=== PATIENT | male | born 1970 | race Caucasian/White ===

== ENCOUNTER 2016-05-18 16:21 | Inpatient (IN) ==
[2016-05-18] MEDS ORDERED: IOPAMIDOL 100 ML BOTTLE IJ ONE (16:22)
--- NOTE | 2016-05-18 16:46 | Emergency Department Note ---
Abdominal Pain HPI - General Chief Complaint: Abdominal Pain Stated Complaint: Abd pain N/V/D Time Seen by Provider: 05/18/16 16:32 Source: patient Mode of arrival: ambulatory Limitations: no limitations - History of Present Illness HPI Narrative: This patient has had some nausea vomiting and diarrhea for the last week. He is developed fairly severe epigastric pain in the last 24 hours. It's sharp without radiation and may be made worse by food. No history of pain like this in the past. MD Complaint: abdominal pain Onset (ago): hour(s) Consistency: constant Location: epigastric Severity: moderate Quality: stabbing Radiation: none Migration to: no migration Improves with: nothing Worsens with: eating - Related Data Home Medications Medication Instructions Recorded Confirmed No Known Home Meds [No Known Home 05/18/16 05/18/16 Meds] Allergies Allergy/AdvReac Type Severity Reaction Status Date / Time No Known Drug Allergies Allergy Verified 05/24/15 18:37 Review of Systems Constitutional: Denies: fever Eyes: Denies: eye pain ENT ED: Denies: ear pain Cardiovascular: Denies: chest pain Respiratory: Denies: cough Gastrointestinal: Reports: abdominal pain, nausea, vomiting, diarrhea. Denies: constipation, hematemesis, melena, hematochezia Genitourinary: Denies: urgency Musculoskeletal: Denies: back pain Integumentary: Denies: rash Neurological: Denies: headache Abdominal Pain PMH - Past Medical History Medical history: Reports: hypertension Surgical history ED: Reports: orthopedic, other Physical Exam - General Limitations: no limitations General appearance: alert - Head Head exam: atraumatic - Eye Eye exam: Present: normal appearance - ENT ENT exam: normal exam - Neck Neck exam: Present: normal inspection - Chest Chest inspection: Present: normal inspection - Respiratory Respiratory exam: Present: normal lung sounds bilaterally - Cardiovascular Cardiovascular exam: Present: regular rate, normal rhythm, normal heart sounds - Abdominal Exam Abdominal exam: Present: soft, tenderness, guarding. Absent: distention, rebound, rigidity Abdominal tenderness: Present: epigastrium, moderate - Rectal Exam Rectal exam: Present: deferred - Neurological Exam Neurological exam: Present: alert - Psychiatric Psychiatric exam: Present: normal affect - Skin Skin exam: Present: warm, dry Course Vital Signs Temperature 98.3 F 05/18/16 16:22 Pulse Rate 134 H 05/18/16 16:22 Respiratory Rate 22 05/18/16 16:22 Blood Pressure 168/127 05/18/16 16:22 Pulse Oximetry (%) 99 05/18/16 16:22 Temperature 98.3 F 05/18/16 16:22 Pulse Rate 117 H 05/18/16 18:42 Respiratory Rate 22 05/18/16 16:22 Blood Pressure 183/115 05/18/16 18:42 Pulse Oximetry (%) 98 05/18/16 18:42 Abdominal Pain - MDM Narrative Medical decision making narrative: This patient has pancreatitis without obvious cause. His gallbladder ultrasound was negative. - Lab Data Lab results reviewed: Yes I reviewed the patient's lab results. (lipase was over 1100) Result diagrams: 05/18/16 16:58 05/18/16 16:58 Lab Results 05/18/16 05/18/16 05/18/16 Range/Units 16:46 16:58 16:58 WBC 18.2 H (4.5-11.0) K/mcL RBC 4.42 L (4.50-5.90) M/mcL Hgb 15.5 (13.5-16.5) g/dL Hct 46.0 (41.0-55.0) % MCV 103.9 H (80.0-100.0) fL MCH 35.1 H (26.0-34.0) pg MCHC 33.7 (31.0-36.0) g/dL RDW 14.0 (11.5-14.5) % Plt Count 254 (140-440) K/mcL MPV 8.6 (7.4-10.4) fL Gran % 88.9 H (38.0-78.0) % Lymph % (Auto) 4.6 L (15.5-49.0) % [place] % (Auto) 6.0 (1.0-9.0) % Eos % (Auto) 0.5 (0.0-7.0) % Baso % (Auto) 0 (0.0-2.0) % Gran # 16.2 H (1.8-8.0) K/mcL Lymph # 0.8 L (1.5-4.8) K/mcL [place] # 1.1 H (0.1-0.9) K/mcL Eos # 0.1 (0.0-0.7) K/mcL Baso # 0 (0.0-0.3) K/mcL Sodium 133 (133-145) mmol/L Potassium 3.4 (3.3-5.1) mmol/L Chloride 93 L (96-108) mmol/L Carbon Dioxide 23 (22-30) mmol/L Anion Gap 17.0 H (8-16) BUN 16 (6-20) mg/dl Creatinine 1.0 (0.7-1.2) mg/dl GFR Calculation 90 Glucose 132 H (70-105) mg/dL Calcium 8.6 (8.6-10.4) mg/dl Total Bilirubin 1.5 H (0.0-1.0) mg/dL AST 23 (0-37) U/l ALT 15 (0-40) U/l Alkaline Phosphatase 88 (39-117) U/L Total Protein 7.1 (5.9-8.4) gm/dL Albumin 4.1 (3.2-5.2) gm/dL Globulin 3.0 (2.2-3.7) gm/dL Albumin/Globulin Ratio 1.4 (1.0-2.3) Lipase 1186 H (7-60) U/L Urine Color Ana Luisa Urine Appearance Cloudy Urine pH 5.0 (5.0-9.0) Ur Specific [place] 1.033 (1.000-1.035) Urine Protein 100 A (NEG) mg/dL Urine Glucose (UA) 50 A (NEG) mg/dL Urine Ketones 5/tr A (NEG) mg/dL Urine Occult Blood Neg (<0.03) mg/dL Urine Nitrate Neg (NEG) Urine Bilirubin Neg (NEG) mg/dL Urine Ictotest Neg (NEG) Urine Urobilinogen 2.0 A (NEG) mg/dL Ur Leukocyte Esterase 25 A (NEG) /uL Urine RBC 8 H (0-1) /hpf Urine WBC 30 H (0-4) /hpf Ur Squamous Epith Cells 0 (0-4) /hpf Ur Transition Epith Cell 1 (0-2) /hpf Amorphous Crystals Few A (0) /hpf Urine Bacteria 0 (0) /hpf Hyaline Casts 74 H (0-2) /lpf Urine Mucus Many A (0) /hpf Ur Culture Indicated? Yes - Radiology Data Radiology results reviewed: Yes I reviewed the patient's radiology results. ( gallbladder sonogram negative) Disposition Clinical Impression: Pancreatitis, Urinary tract infection Disposition: Xfer As Inpt ([facility]) Condition: Good Referrals: Chico Jett MD [Primary Care Provider] - Time of Disposition: 19:24
[2016-05-18] MEDS ORDERED: ONDANSETRON 4 MG/2 ML VIAL IV ONE (16:49)
[2016-05-18] MEDS ORDERED: 0.9 % SODIUM CHLORIDE 1,000 ML IV ONE ×2 (16:49→18:04)
[2016-05-18 17:26] LABS: Appearance,Urine CLOUDY; Bacteria,Urine 0 /hpf (0); Bilirubin,Urine NEG (NEG); Color,Urine AMBER; Glucose,Urine (UA) 50 mg/dL (NEG); Ictotest,Urine NEG (NEG); Leukocyte Esterase,Urine 25 /uL (NEG); Mucus,Urine MANY /hpf (0); Nitrate,Urine NEG (NEG); Protein,Urine 100 mg/dL (NEG); Specific Gravity,Urine 1.033 (1.000-1.035); Urine Amorphous Crystals FEW /hpf (0); Urine Blood NEG mg/dL (<0.03); Urine Hyaline Cast 74 /lpf (0-2); Urine RBC 8 /hpf (0-1); Urine Squamous Epithelial Cell 0 /hpf (0-4); Urine Transitional Epi Cells 1 /hpf (0-2); Urine WBC 30 /hpf (0-4)
[2016-05-18] MEDS: HYDROmorphone 2 MG/ML SYRINGE IV PRN ×4 (17:30→20:35)
[2016-05-18 17:39] LABS: Basophils # (Auto) 0 K/mcL (0.0-0.3); Basophils % (Auto) 0 % (0.0-2.0); Eosinophils # (Auto) 0.1 K/mcL (0.0-0.7); Eosinophils % (Auto) 0.5 % (0.0-7.0); Granulocytes % (Auto) 88.9 % (38.0-78.0); Lymphocytes # (Auto) 0.8 K/mcL (1.5-4.8); Lymphocytes % (Auto) 4.6 % (15.5-49.0); Mean Cell Volume 103.9 fL (80.0-100.0); Mean Corpuscular HGB Conc 33.7 g/dL (31.0-36.0); Mean Corpuscular Hemoglobin 35.1 pg (26.0-34.0); Monocytes # (Auto) 1.1 K/mcL (0.1-0.9); Platelet Count 254 K/mcL (140-440); RBC 4.42 M/mcL (4.50-5.90)
[2016-05-18 17:59] LABS: ALT/SGPT 15 U/l (0-40); Albumin 4.1 gm/dL (3.2-5.2); Albumin/Globulin Ratio 1.4 (1.0-2.3); Alkaline Phosphatase 88 U/L (39-117); Blood Urea Nitrogen 16 mg/dl (6-20)
[2016-05-18 18:07] LABS: Lipase 1186 U/L (7-60)
[2016-05-18] MEDS ORDERED: LEVOFLOXACIN 500 MG/100 ML BAG IV ONE ×2 (19:22→22:05)
[2016-05-18] MEDS ORDERED: MAGNESIUM SULFATE 2 GM/50 ML BAG IV PRN (21:46)
[2016-05-18] MEDS ORDERED: HYDROcodone/APAP 5/325MG TABLET PO PRN (21:46)
[2016-05-18] MEDS ORDERED: ACETAMINOPHEN 325 MG TABLET PO PRN (21:46)
[2016-05-18] MEDS ORDERED: ACETAMINOPHEN 1,000 MG/100 ML BOTTLE IV PRN (21:46)
[2016-05-18] MEDS ORDERED: ONDANSETRON 4 MG/2 ML VIAL IV PRN (21:46)
[2016-05-18] MEDS ORDERED: cefTRIAXone 2 GM in DEXTROSE 5% IN WATER 50 ML IV SCH (21:46)
[2016-05-18] MEDS ORDERED: POTASSIUM CHLORIDE 20 MEQ PACKET PO PRN (21:46)
[2016-05-18] MEDS ORDERED: HYDROmorphone 2 MG/ML SYRINGE ONE ×2 (21:47→22:29)
[2016-05-18] MEDS: 0.9 % SODIUM CHLORIDE 1,000 ML IV SCH (21:49)
[2016-05-18] MEDS ORDERED: cefTRIAXone 1 GM VIAL ONE (22:05)
[2016-05-18] MEDS: NOREPINEPHRINE BITARTRATE 16 MG in 0.9 % SODIUM CHLORIDE 234 ML IV SCH (22:16)
[2016-05-18] MEDS: SENNOSIDES/DOCUSATE SODIUM 1 TAB TABLET PO SCH (22:16)
[2016-05-18] MEDS: DOCUSATE SODIUM 100 MG CAPSULE PO SCH (22:17)
[2016-05-18] MEDS ORDERED: LEVOFLOXACIN 250 MG/50 ML BAG IV ONE (22:30)
[2016-05-18] MEDS: LACTATED RINGERS 1,000 ML IV SCH (22:50)
[2016-05-18] MEDS ORDERED: NICOTINE 21 MG PATCH ONE (23:24)
[2016-05-18] MEDS: NICOTINE 21 MG PATCH TOPICAL SCH (23:30)
[2016-05-18] MEDS: LEVOFLOXACIN 750 MG/150 ML BAG IV SCH (23:43)
[2016-05-18] MEDS: HEPARIN 5,000 UNIT/ML VIAL SQ SCH (23:52)
[2016-05-18] MEDS: 0.9 % SODIUM CHLORIDE 10 ML SYRINGE IV SCH (23:55)
[2016-05-19] MEDS ORDERED: hydrALAZINE 20 MG/ML VIAL IV PRN (00:08)
[2016-05-19] MEDS ORDERED: hydrALAZINE 20 MG/ML VIAL ONE (00:11)
[2016-05-19] MEDS ORDERED: HYDROmorphone 2 MG/ML SYRINGE ONE ×2 (00:23→02:12)
[2016-05-19] MEDS ORDERED: LIDOCAINE JEL 2% 1 TUBE 30GM TOPICAL ONE (01:04)
[2016-05-19] MEDS ORDERED: chlordiazePOXIDE 25 MG CAPSULE PO ONE (02:56)
[2016-05-19] MEDS ORDERED: chlordiazePOXIDE 25 MG CAPSULE PO PRN (03:05)
[2016-05-19] MEDS: 0.9 % SODIUM CHLORIDE 1,000 ML IV SCH ×2 (03:07→21:09)
[2016-05-19 06:16] LABS: Mean Cell Volume 104.9 fL (80.0-100.0); Mean Corpuscular HGB Conc 33.8 g/dL (31.0-36.0); Mean Corpuscular Hemoglobin 35.5 pg (26.0-34.0); Platelet Count 190 K/mcL (140-440); RBC 3.42 M/mcL (4.50-5.90); Red Cell Distribution Width 14.2 % (11.5-14.5)
[2016-05-19 06:42] LABS: ALT/SGPT 10 U/l (0-40); Albumin 3.1 gm/dL (3.2-5.2); Albumin/Globulin Ratio 1.6 (1.0-2.3); Alkaline Phosphatase 66 U/L (39-117); Bilirubin,Direct 0.3 mg/dL (0.0-0.3); Blood Urea Nitrogen 9 mg/dl (6-20); Gamma Glutamyl Transpeptidase 132 U/L (8-61); Magnesium 1.2 mg/dL (1.6-2.5); Phosphorous 2.2 mg/dL (2.7-4.5)
--- NOTE | 2016-05-19 06:56 | Ultrasound Report ---
CLINICAL INFORMATION: Right upper quadrant pain nausea and vomiting COMPARISON: None. FINDINGS: The gallbladder is unremarkable. No wall thickening or stones. Common bile is normal caliber: 4.5 mm. The liver is mildly hyperechoic compatible fatty change. There is no focal hepatic lesion. The liver is normal size. Pancreas not visualized due to bowel gas. IMPRESSION: Gallbladder and bile ducts are unremarkable. Hyperechoic liver compatible fatty change or other diffuse parenchymal process Pancreas not visualized due to bowel gas Interpreted and Authenticated by: Omari Green 05/19/16
[2016-05-19 07:02] LABS: Band Neutrophils % 2 % (0-10); Eosinophils % (Manual) 1 % (0-7); Lymphocytes % 2 % (15-49); Macrocytosis 2+ (NONE SEEN); Monocytes % (Manual) 6 % (1-9); Platelet Estimate NORMAL (NORMAL); RBC Morphology ABNORM (NORMAL); Segmented Neutrophils % 89 % (38-78)
[2016-05-19] MEDS: 0.9 % SODIUM CHLORIDE 10 ML SYRINGE IV SCH ×4 (07:12→21:09)
[2016-05-19] MEDS: PANTOPRAZOLE 40 MG VIAL IV SCH (07:37)
[2016-05-19] MEDS: LACTATED RINGERS 1,000 ML IV SCH ×2 (07:59→19:25)
--- NOTE | 2016-05-19 08:00 | Cat Scan Report ---
CLINICAL INFORMATION: Right upper quadrant pain COMPARISON: None. TECHNIQUE: Following enteric contrast, 80 cc of Isovue-300 were injected intravenously, and 60 seconds later, 2.5 mm helical slices were obtained from the mid heart through the subtrochanteric regions. Following reconstruction, 2.5 mm sagittal, coronal and axial reformatted images were processed and reviewed at bone, lung and soft tissue windows. Five minutes later, 5 mm helical slices were obtained from the mid heart through the kidneys and viewed at soft tissue windows. FINDINGS: Lung bases show only minor atelectasis. No effusion. The heart is grossly normal in size configuration Images should the abdomen show minimal fatty change within the liver, but no focal hepatic lesions. The gallbladder and bile ducts are normal - CBD is 5 mm. A 9 mm simple cyst is noted inferior pole the left kidney and a 6 mm simple cyst is present in the superior pole of the right kidney. Remainder of both kidneys, adrenal glands, spleen and aorta, including aortic branches, are normal in size configuration and attenuation without focal lesion. The pancreatic head, neck and proximal body are mildly enlarged and there is inflammation in the peripancreatic fat planes with a small amount of fluid extending along the right anterior pararenal space and paracolic gutter. Small amounts also the deep true pelvis. Findings are compatible with simple pancreatitis. No evidence of pseudocyst, necrosis, pancreatic or common bile duct dilatation etc. etc. Pancreatic duct is normal caliber - less than 2 mm. The stomach, small and large bowel are grossly normal. No free air, or adenopathy. Images through the pelvis show urinary bladder, prostate and seminal vesicles to be normal. Bone windows show no osseous abnormalities. IMPRESSION: 1. Simple pancreatitis involving the head, neck and proximal body. 2. Small simple cysts - both kidneys Interpreted and Authenticated by: Omari Green 05/19/16
[2016-05-19] MEDS ORDERED: [UNRECOGNIZED DRUG - REMARK] IV SCH (09:00)
[2016-05-19] MEDS ORDERED: POTASSIUM CHLORIDE 80 MEQ in DEXTROSE 5% IN WATER 1,000 ML IV ONE (09:00)
[2016-05-19] MEDS: HEPARIN 5,000 UNIT/ML VIAL SQ SCH ×2 (09:22→21:08)
[2016-05-19] MEDS: DOCUSATE SODIUM 100 MG CAPSULE PO SCH ×2 (09:22→20:33)
[2016-05-19] MEDS: NICOTINE 21 MG PATCH TOPICAL SCH (09:23)
[2016-05-19] MEDS: MULTIVIT,THER IRON,CA,FA & MIN 1 TABLET PO SCH (09:23)
[2016-05-19] MEDS: HYDROmorphone 2 MG/ML SYRINGE IV PRN ×2 (09:30→14:52)
[2016-05-19] MEDS ORDERED: [UNRECOGNIZED DRUG - REMARK] IV SCH (10:00)
--- NOTE | 2016-05-19 10:34 | Internal Med Progress Note ---
Medical - PN: Subj Patient information: Note initiated : 05/19/16 at 10:29 am Service Date, if different from initiated Date: [] Patient: Yinka Medina 46 y/o M admitted on 05/18/16 for Abd pain N/V/D. Chief Complaint: [] Interval history: 05/18- 46-year-old known alcoholic admitted with epigastric abdominal pain 10 out of 10. initial workup significant for cute pancreatitis. no evidence of choledocholithiasis ongallbladder ultrasound. CT abdomen pending initial [place] 's and Meigs score low. However out of proportion pain. Admitted to telemetry in light of system inquiry response syndrome with white count 18,000 tachycardia tachypnea. Associated complicated UTI with pyuria. Await CT to rule out pyelonephritis. On antibiotic coverage, crystalloids, NPO, analgesics and IV antiemetics. patient explained clinical significance of pancreatitis and endoscopic mortality if evidence of necrosis/pseudocyst/infection. lipase over 1000. nitial CRP 4.2. Continue daily trending 05/19- patient had a rough night with severe pain not responding to high dose of Dilaudid and subsequently started on morphine with adequate pain relief down to 4 out of 10. Associated nausea. Systemic infected response syndrome improving with resolving tachycardia. Leukocytosis of 13,000. at bedside. Aggressive alcohol cessation counseling performed. Patient starting to withdraw. On Librium to counter alcohol withdrawal and psychomotor agitation - Constitutional Vitals: Vital Signs Temp Pulse Resp BP Pulse Ox 100.4 F H 102 H 20 154/105 94 05/19/16 07:20 05/18/16 23:00 05/19/16 08:00 05/19/16 07:20 05/19/16 08:00 Period Temp Pulse Resp BP Sys/Armenta Pulse Ox Last 24 Hr 98.3 F-100.4 F 100-115 20-22 154-195/105-123 94-97 Intake and Output 05/18/16 05/19/16 05/19/16 21:59 05:59 13:59 Intake Total 2100 / 2100 1127 / 1127 Output Total 550 / 550 Balance 1550 / 1550 1127 / 1127 Weight 240 lb Patient Weight 05/20/16 05:59 Weight 240 lb Intake & Output: Intake & Output 05/18/16 05/19/16 05/19/16 21:59 05:59 13:59 Intake Total 2099 / 2099 1127 / 1127 Output Total 550 / 550 Balance 1550 / 1550 1127 / 1127 Weight 240 lb Intake: IV 2049 1127 / 1127 Sodium Chloride 0.9% 1, 2000 / 1999 000 ml @ Wide Open IV BOLUS [facility] Rx#:[id number] Lactated Ringers 1,000 ml 1127 / 1127 @ 100 mls/hr IV .Q10H [facility] Rx#:[id number] LEVAQUIN 500 mg In 100 ml 50 / 50 As IV .STK-MED ONE Rx#: [id number] IV - Manual Only 50 / 50 Output: Urine Catheter Amount 550 / 550 General appearance: cooperative, moderate distress (abdominal pain and anxiety) Exam: resting Nonlabored breathing Tachycardia improved on telemetry Tenderand minimally distended abdomen no lymphedema Medical - PN: Obj Da - Labs CBC & Chem 7: 05/19/16 04:16 05/19/16 04:16 Labs: Abnormal Lab Results 05/19/16 05/19/16 04:16 04:16 WBC 13.4 H RBC 3.42 L Hgb 12.1 L Hct 35.8 L MCV 104.9 H MCH 35.5 H Seg Neutrophils % 89 H Lymphocytes % 2 L RBC Morphology Abnorm A Macrocytosis 2+ A Sodium 131 L Potassium 3.1 L Calcium 7.0 L Phosphorus 2.2 L Magnesium 1.2 L GGT 132 H Total Protein 5.0 L Albumin 3.1 L Globulin 1.9 L Meds: Medications Acetaminophen (Tylenol) 650 mg PO Q4-6HP PRN PRN Reason: PAIN/FEVER > 101 Acetaminophen/Hydrocodone Bitart ([place] 5/325mg) 0 tab PO Q4HP PRN PRN Reason: Pain Chlordiazepoxide HCl (Librium) 25 mg PO Q4HP PRN PRN Reason: Alcohol Withdrawal Docusate Sodium (Colace) 100 mg PO BID [facility] Last Admin: 05/19/16 09:22 Dose: Not Given Heparin Sodium (Porcine) (Heparin) 5,000 unit SQ Q12 [facility] Last Admin: 05/19/16 09:22 Dose: 5,000 unit Hydralazine HCl (Apresoline) 10 mg IV Q4-6HP PRN PRN Reason: Hypertension Hydromorphone HCl (Dilaudid) 2 mg IV Q2HP PRN PRN Reason: Pain Last Admin: 05/19/16 09:30 Dose: 2 gm Lactated Ringer's (Lactated Ringers) 1,000 mls @ 100 mls/hr IV .Q10H [facility] Stop: 05/20/16 03:45 Last Infusion: 05/19/16 10:06 Dose: 0 mls/hr Levofloxacin (Levaquin) 750 mg in 150 mls @ 100 mls/hr IV DAILY [facility] Last Admin: 05/18/16 23:43 Dose: Not Given Magnesium Sulfate (Magnesium Sulfate) 2 gm in 50 mls @ 50 mls/hr IV UD PRN PRN Reason: MG = or < 1.7 Norepinephrine Bitartrate 16 (mg/ Sodium Chloride) 250 mls @ 9.37 mls/hr IV Q24H GREGORY; 10 MCG/MIN PRN Reason: Protocol Last Admin: 05/18/16 22:16 Dose: Not Given Sodium Chloride (Sodium Chloride 0.9%) 1,000 mls @ 0 mls/hr IV BOLUS GREGORY PRN Reason: Wide Open Last Infusion: 05/19/16 04:10 Dose: Infused Acetaminophen (Ofirmev) 1,000 mg in 100 mls @ 200 mls/hr IV Q6HP PRN PRN Reason: PAIN/FEVER > 101 Ceftriaxone Sodium 2 gm/ (Dextrose) 50 mls @ 100 mls/hr IV DAILY [facility] Magnesium Sulfate 16.24 meq/Thiamine HCl 100 mg/Multivitamins/Minerals 10 ml/ Potassium Chloride 80 meq/Sodium Chloride 1,055 mls @ 131.875 mls/hr IV .Q8H [facility] Stop: 05/19/16 17:59 Last Admin: 05/19/16 10:03 Dose: 131.875 mls/hr Iron Carb/Multivit/Community Educator/Folic Acid (Multivitamin W/Minerals) 1 tab PO DAILY [facility] Last Admin: 05/19/16 09:23 Dose: Not Given Morphine Sulfate (Morphine) 4 mg IV Q4-6HP PRN PRN Reason: Pain Nicotine (Nicoderm) 21 mg TOPICAL DAILY@1000 GREGORY Last Admin: 05/19/16 09:23 Dose: 21 mg Ondansetron HCl (Zofran) 4 mg IV Q4-6HP PRN PRN Reason: Nausea And Vomiting Pantoprazole Sodium (Protonix) 40 mg IV ACB [facility] Last Admin: 05/19/16 07:37 Dose: 40 mg Potassium Chloride (Klor-Con) 40 meq PO DAILYP PRN PRN Reason: K+ < 3.5 Senna/Docusate Sodium (Senna Plus Tablet) 1 tab PO HS [facility] Last Admin: 05/18/16 22:16 Dose: Not Given Sodium Chloride (Saline Flush) 10 ml IV Q8 [facility] Last Admin: 05/19/16 07:12 Dose: 10 ml Medical - PN: A/P - Time Spent With Patient Total time spent is greater than 50% in coordination of care (as documented) at patient's floor/unit and/or counseling patient: Greater than 35 minutes (critical care time) (1) Acute alcoholic pancreatitis Status: Acute Assessment and plan: * Acute alcoholic pancreatitis- managed per guidelines. Low [place] and Meigs score on admit. However out of proportion pain requiring excessive IV opioids. Continue close monitoring. Keep nothing by mouth. crystalloids * Alcohol withdrawal with psychomotor agitation. on oral benzodiazepines. Continue banana bag. * Hypokalemia on IV replacement * Abdominal pain on IV opioids * History of hypertension- IV hydralazine as needed for systolics over 160 * prophylaxis on heparin Plan * Conservative management * Alcohol withdrawal protocol * Continue ICU care and watch for DTs * aggressive Electrolyte Replacement Current Visit: Yes Medical - PN: Qual - VTE Deep Vein Thrombosis/Pulmonary Embolism Present on Admission: No
[2016-05-19] MEDS ORDERED: 0.9 % SODIUM CHLORIDE 1,000 ML IV SCH (10:45)
--- NOTE | 2016-05-19 13:09 | History and Physical Report ---
DATE OF ADMISSION: 05/18/2016. REASON FOR ADMISSION: Severe abdominal pain, nausea, and vomiting. 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 He has been working with the symptoms and trying [id number] analgesics without help. The pain has progressed to the point the patient can barely move and function. The pain gets exacerbated with food and movement and describes it 8/10 to 10/10, upper abdomen radiating to the back, associated with severe nausea. The patient denies fevers, shaking chills, headache, photophobia. Pain also exacerbates with alcohol and hence since last one week, he has not had a drink. The patient has been trying to cut down on his alcohol use, which in the last 1 month from almost 8-10 beers a day to 5 beers a day. Other than that, he denies diarrhea, bloody stool, bloody urine, dysuria, headache, photophobia. The ER initial workup was significant for lipase of over 1100 along with pyuria and white count 18,000. In light of systemic inflammatory response syndrome with tachycardia, tachypnea, and high white count, hospitalist service was consulted. Gallbladder ultrasound was unremarkable for choledocholithiasis. At the time of examination, the patient is extremely anxious, diaphoresing, in significant pain. He was able to provide most of the history and was able to participate in review of systems. REVIEW OF SYSTEMS: Ten-point review of system was performed and is negative except the ones discussed above. PAST MEDICAL HISTORY: Significant for hypertension. CURRENT MEDICATIONS: Beclomethasone daily. Hydrocodone/acetaminophen 5/325 every 4 hours as needed. Losartan 50 mg daily. ALLERGIES: NONE. SOCIAL HISTORY: The patient is to his , lives in [place]. 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 He sees primary care physician, Chico Jett MD. He drinks 8 to 10 beers a day and has been trying to cut down recently. No history of substance abuse. Everyday smoker. 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 FAMILY HISTORY: Significant for diabetes in mother, but no history of pancreatic cancer or stroke. Father had peripheral vascular disease and of complication of gangrene. PHYSICAL EXAMINATION: GENERAL: The patient is alert and in significant distress. Height 6 feet 4 inches, BMI 29. VITAL SIGNS: Blood pressure 188/118, respiratory rate 22, temperature 98.3, pulse between 117 and 134, regular, sats 99 percent on room air. HEENT: Pupils symmetric. Oral cavity is dry. No ear or nose discharge. Head is normocephalic and atraumatic. NECK: No lymphadenopathy. CHEST: S1, S2, tachycardia. No murmur appreciated. Diminished breath sounds at bases, but symmetrical breath sounds bilaterally. ABDOMEN: Extremely tender around the epigastric area but no rebound, no Vidal sign, ileus with distention. No fluid, no shifting dullness. LOWER EXTREMITIES: No cyanosis or clubbing. No joint swelling. SKIN: No suspicious lesions. PSYCHIATRIC: Anxious, diaphoretic but cooperative. No hallucination. NEUROLOGIC: Moving all 4 extremities. Normal high function. LABS AND IMAGING: Abdominal ultrasound: Gallbladder and bile ducts are unremarkable. CT abdomen and pelvis: Simple pancreatitis involving the head, small simple cysts both kidneys. White count 18.2, hemoglobin 15.5, platelets 254. ESR 8. Lactic acid 0.8. Sodium 130, potassium 3.4, creatinine 1, BUN 16, bilirubin 1.5. Lipase 1186. Procalcitonin 0.13. UA: 30 WBCs. ASSESSMENT AND PLAN: A 46-year-old with acute alcoholic pancreatitis. 1. Acute alcoholic pancreatitis. Low [place]'s and [place] score on admit, however, intractable pain. Continue management per guidelines with nothing by mouth, antiemetics, analgesics, along with crystalloids, target at least 3 to 4 liters of crystalloid resuscitation. 2. Abdominal pain. Will be continued on IV opioids and transition to a EMERGENCY ROOM PHYSICIAN ASSISTANT if inadequate control. 3. Complicated urinary tract infection. Continue antibiotic coverage. 4. Severe sepsis with leukocytosis, tachypnea, tachycardia. Continue antibiotic coverage and __ based on culture results. 5. History of hypertension. We will restart antihypertensives once the patient is hemodynamically stable. 6. History of reactive airway disease. Continue home dose bronchodilators. 7. Deep venous thrombosis prophylaxis. He will be on heparin. PLAN FOR TODAY: 1. Admit as inpatient. 2. Conservative management for pancreatitis keeping nothing by mouth, crystalloids, antiemetics, and analgesics. 3. Antibiotic coverage. 4. Serial CRP trending. 5. The patient will be kept at least 72 hours and will qualify for inpatient hospitalization. [email or web address] Job ID: [id number] Doc ID: [id number] Vinay Jett MD [facility] CENTERAnjel
[2016-05-19] MEDS: cefTRIAXone 2 GM in DEXTROSE 5% IN WATER 50 ML IV SCH (13:24)
[2016-05-19] MEDS: LEVOFLOXACIN 750 MG/150 ML BAG IV SCH (13:56)
[2016-05-19] MEDS: SENNOSIDES/DOCUSATE SODIUM 1 TAB TABLET PO SCH (20:33)
[2016-05-19] MEDS: NOREPINEPHRINE BITARTRATE 16 MG in 0.9 % SODIUM CHLORIDE 234 ML IV SCH (20:34)
[2016-05-20] MEDS: LACTATED RINGERS 1,000 ML IV SCH (02:56)
[2016-05-20 05:34] LABS: Mean Cell Volume 105.2 fL (80.0-100.0); Mean Corpuscular HGB Conc 33.7 g/dL (31.0-36.0); Mean Corpuscular Hemoglobin 35.5 pg (26.0-34.0); Platelet Count 173 K/mcL (140-440); RBC 3.38 M/mcL (4.50-5.90); Red Cell Distribution Width 14.1 % (11.5-14.5)
[2016-05-20] MEDS: 0.9 % SODIUM CHLORIDE 10 ML SYRINGE IV SCH ×3 (05:52→21:20)
[2016-05-20 06:03] LABS: ALT/SGPT 9 U/l (0-40); Albumin 3.1 gm/dL (3.2-5.2); Albumin/Globulin Ratio 1.6 (1.0-2.3); Alkaline Phosphatase 69 U/L (39-117); Bilirubin,Direct 0.2 mg/dL (0.0-0.3); Blood Urea Nitrogen 4 mg/dl (6-20); C-Reactive Protein 14.7 mg/dl (0.0-0.8); Gamma Glutamyl Transpeptidase 131 U/L (8-61); Magnesium 1.9 mg/dL (1.6-2.5); Uric Acid 2.8 mg/dL (2.5-8.0)
[2016-05-20 06:44] LABS: Basophils % (Manual) 1 % (0-2); Eosinophils % (Manual) 4 % (0-7); Lymphocytes % 8 % (15-49); Macrocytosis 2+ (NONE SEEN); Monocytes % (Manual) 5 % (1-9); Platelet Estimate NORMAL (NORMAL); RBC Morphology ABNORM (NORMAL); Segmented Neutrophils % 80 % (38-78)
[2016-05-20] MEDS: PANTOPRAZOLE 40 MG VIAL IV SCH (07:55)
[2016-05-20] MEDS ORDERED: [UNRECOGNIZED DRUG - REMARK] IV SCH (09:00)
[2016-05-20] MEDS ORDERED: FLU VACC QS2016-17 36MOS UP/PF 60 MCG/0.5 ML SYRINGE IM ONE (09:00)
--- NOTE | 2016-05-20 09:45 | Internal Med Progress Note ---
Medical - PN: Subj Patient information: Note initiated : 05/20/16 at 9:43 am Service Date, if different from initiated Date: [] Patient: Yinka Medina 46 y/o M admitted on 05/18/16 for Abd pain N/V/D. Chief Complaint: [] Interval history: 05/18- 46-year-old known alcoholic admitted with epigastric abdominal pain 10 out of 10. initial workup significant for cute pancreatitis. no evidence of choledocholithiasis ongallbladder ultrasound. CT abdomen pending initial [place] 's and [place] score low. However out of proportion pain. Admitted to telemetry in light of system inquiry response syndrome with white count 18,000 tachycardia tachypnea. Associated complicated UTI with pyuria. Await CT to rule out pyelonephritis. On antibiotic coverage, crystalloids, NPO, analgesics and IV antiemetics. patient explained clinical significance of pancreatitis and endoscopic mortality if evidence of necrosis/pseudocyst/infection. lipase over 1000. nitial CRP 4.2. Continue daily trending 05/19- patient had a rough night with severe pain not responding to high dose of Dilaudid and subsequently started on morphine with adequate pain relief down to 4 out of 10. Associated nausea. Systemic infected response syndrome improving with resolving tachycardia. Leukocytosis of 13,000. at bedside. Aggressive alcohol cessation counseling performed. Patient starting to withdraw. On Librium to counter alcohol withdrawal and psychomotor agitation 05/20-Patient clinically improved. CRP uptrending at 14.7. Passing flatus. Much improved pain requiring opioids once in 4 hours. Slept well. Discussed treatment plan. at bedside. Start patient on clear liquids/jellos. no overnight chest pain shortness of breath. MAXIMUM TEMPERATURE 100.4. urine cultures negative so far. white count down from 18.2-> 12.2. magnesium 1.9. Phosphorus 2. transfer to medical floor. Stable hemodynamics. DC antibiotics in 24 hours. - Constitutional Vitals: Vital Signs Temp Pulse Resp BP Pulse Ox 99.6 F 89 16 169/99 99 05/20/16 04:00 05/20/16 04:00 05/20/16 04:00 05/20/16 04:00 05/20/16 04:00 Period Temp Pulse Resp BP Sys/Armenta Pulse Ox Last 24 Hr 98.8 F-100.4 F 88-89 16-20 149-169/95-100 93-99 Intake and Output 05/19/16 05/20/16 05/20/16 21:59 05:59 13:59 Intake Total 2205 / 2205 788 / 788 Output Total 1250 / 1250 1400 / 1400 Balance 955 / 955 -612 / -612 Weight 239 lb Intake & Output: Intake & Output 05/19/16 05/20/16 05/20/16 21:59 05:59 13:59 Intake Total 2205 / 2205 788 / 788 Output Total 1250 / 1250 1400 / 1400 Balance 955 / 955 -612 / -612 Weight 239 lb Intake: IV 2205 / 2205 788 / 788 Sodium Chloride 0.9% 1, 1000 / 1000 000 ml @ Wide Open IV BOLUS GREGORY Rx#:[id number] Lactated Ringers 1,000 ml 0 / 0 788 / 788 @ 100 mls/hr IV .Q10H GREGORY Rx#:[id number] Magnesium Sulfate 16.24 1055 / 1055 Meq Vitamin B1 100 mg Infuvite Adult 10 ml Potassium Chloride 80 Meq In Sodium Chloride 0.9% 1,000 ml @ 131.875 mls/hr IV .Q8H GREGORY Rx#: [id number] Output: Urine Catheter Amount 1250 / 1250 1400 / 1400 Other: # Bowel Movements 0 General appearance: cooperative, no acute distress Exam: alert oriented nonlabored breathing Mild anxiety Nondistended abdomen ambulating Medical - PN: Obj Da - Labs CBC & Chem 7: 05/20/16 04:45 05/20/16 04:45 Labs: Abnormal Lab Results 05/20/16 05/20/16 05/19/16 04:45 04:45 04:16 WBC 12.2 H RBC 3.38 L Hgb 12.0 L Hct 35.5 L MCV 105.2 H MCH 35.5 H Seg Neutrophils % 80 H Lymphocytes % 8 L RBC Morphology Abnorm A Macrocytosis 2+ A Sodium 131 L Potassium Chloride 94 L BUN 4 L Creatinine 0.6 L Glucose 67 L Calcium 7.7 L Phosphorus 2.0 L Magnesium GGT 131 H C-Reactive Protein 14.7 H 8.9 H Total Protein 5.0 L Albumin 3.1 L Globulin 1.9 L 05/19/16 05/19/16 04:16 04:16 WBC 13.4 H RBC 3.42 L Hgb 12.1 L Hct 35.8 L MCV 104.9 H MCH 35.5 H Seg Neutrophils % 89 H Lymphocytes % 2 L RBC Morphology Abnorm A Macrocytosis 2+ A Sodium 131 L Potassium 3.1 L Chloride BUN Creatinine Glucose Calcium 7.0 L Phosphorus 2.2 L Magnesium 1.2 L GGT 132 H C-Reactive Protein Total Protein 5.0 L Albumin 3.1 L Globulin 1.9 L Meds: Medications Acetaminophen (Tylenol) 650 mg PO Q4-6HP PRN PRN Reason: PAIN/FEVER > 101 Acetaminophen/Hydrocodone Bitart (Blair 5/325mg) 0 tab PO Q4HP PRN PRN Reason: Pain Chlordiazepoxide HCl (Librium) 25 mg PO Q4HP PRN PRN Reason: Alcohol Withdrawal Last Admin: 05/19/16 11:06 Dose: 25 mg Docusate Sodium (Colace) 100 mg PO BID [facility] Last Admin: 05/19/16 20:33 Dose: Not Given Heparin Sodium (Porcine) (Heparin) 5,000 unit SQ Q12 [facility] Last Admin: 05/19/16 21:08 Dose: 5,000 unit Hydralazine HCl (Apresoline) 10 mg IV Q4-6HP PRN PRN Reason: Hypertension Hydromorphone HCl (Dilaudid) 2 mg IV Q2HP PRN PRN Reason: Pain Last Admin: 05/19/16 14:52 Dose: 2 mg Levofloxacin (Levaquin) 750 mg in 150 mls @ 100 mls/hr IV DAILY [facility] Last Infusion: 05/19/16 15:59 Dose: Infused Magnesium Sulfate (Magnesium Sulfate) 2 gm in 50 mls @ 50 mls/hr IV UD PRN PRN Reason: MG = or < 1.7 Norepinephrine Bitartrate 16 (mg/ Sodium Chloride) 250 mls @ 9.37 mls/hr IV Q24H GREG[facility]; 10 MCG/MIN PRN Reason: Protocol Last Admin: 05/19/16 20:34 Dose: Not Given Sodium Chloride (Sodium Chloride 0.9%) 1,000 mls @ 0 mls/hr IV BOLUS GREGORY PRN Reason: Wide Open Last Admin: 05/19/16 21:09 Dose: Not Given Acetaminophen (Ofirmev) 1,000 mg in 100 mls @ 200 mls/hr IV Q6HP PRN PRN Reason: PAIN/FEVER > 101 Ceftriaxone Sodium 2 gm/ (Dextrose) 50 mls @ 100 mls/hr IV DAILY [facility] Last Infusion: 05/19/16 13:57 Dose: Infused Sodium Chloride (Sodium Chloride 0.9%) 1,000 mls @ 0 mls/hr IV BOLUS [facility] PRN Reason: Wide Open Last Infusion: 05/19/16 14:47 Dose: Infused Iron Carb/Multivit/Clark/Folic Acid (Multivitamin W/Minerals) 1 tab PO DAILY [facility] Last Admin: 05/19/16 09:23 Dose: Not Given Morphine Sulfate (Morphine) 4 mg IV Q4-6HP PRN PRN Reason: Pain Last Admin: 05/19/16 23:56 Dose: 4 mg Nicotine (Nicoderm) 21 mg TOPICAL DAILY@1000 [facility] Last Admin: 05/19/16 09:23 Dose: 21 mg Ondansetron HCl (Zofran) 4 mg IV Q4-6HP PRN PRN Reason: Nausea And Vomiting Pantoprazole Sodium (Protonix) 40 mg IV ACB [facility] Last Admin: 05/20/16 07:55 Dose: 40 mg Potassium Chloride (Klor-Con) 40 meq PO DAILYP PRN PRN Reason: K+ < 3.5 Senna/Docusate Sodium (Senna Plus Tablet) 1 tab PO HS [facility] Last Admin: 05/19/16 20:33 Dose: Not Given Sodium Chloride (Saline Flush) 10 ml IV Q8 [facility] Last Admin: 05/20/16 05:52 Dose: 10 ml Medical - PN: A/P - Time Spent With Patient Total time spent is greater than 50% in coordination of care (as documented) at patient's floor/unit and/or counseling patient: 25 - 35 minutes (1) Acute alcoholic pancreatitis Status: Acute Assessment and plan: * Acute alcoholic pancreatitis- managed per guidelines. CRP 14.7. Improved hemodynamics. Start oral clears and advance to low-fat diet in the next [address] simple pancreatitis without pseudocyst/necrosis * Alcohol withdrawal with psychomotor agitation. Clinically improving on oral benzodiazepines. * low phosphorus-continue replacement * Abdominal pain much improved. On as needed opioids * History of hypertension- IV hydralazine as needed for systolics over 160 * prophylaxis on heparin Plan * clear liquid diet and advance as tolerated * Alcohol withdrawal protocol * Replace phosphorus * transfer to medical floor * possible discharge in 48 hours if clinically continues to improve Current Visit: Yes Medical - PN: Qual - VTE Deep Vein Thrombosis/Pulmonary Embolism Present on Admission: No
[2016-05-20] MEDS ORDERED: ACETAMINOPHEN 325 MG TABLET PO PRN (09:49)
[2016-05-20] MEDS ORDERED: ACETAMINOPHEN 1,000 MG/100 ML BOTTLE IV PRN (09:49)
[2016-05-20] MEDS ORDERED: ONDANSETRON 4 MG/2 ML VIAL IV PRN (09:49)
[2016-05-20] MEDS ORDERED: hydrALAZINE 20 MG/ML VIAL IV PRN (09:49)
[2016-05-20] MEDS ORDERED: POTASSIUM CHLORIDE 80 MEQ in DEXTROSE 5% IN WATER 1,000 ML IV ONE (09:49)
[2016-05-20] MEDS ORDERED: MAGNESIUM SULFATE 2 GM/50 ML BAG IV PRN (09:49)
[2016-05-20] MEDS ORDERED: POTASSIUM CHLORIDE 20 MEQ PACKET PO PRN (09:49)
[2016-05-20] MEDS: LEVOFLOXACIN 750 MG/150 ML BAG IV SCH ×2 (10:05→12:07)
[2016-05-20] MEDS: cefTRIAXone 2 GM in DEXTROSE 5% IN WATER 50 ML IV SCH ×2 (10:05→12:06)
[2016-05-20] MEDS: NEUTRA PHOS 1 PACKET PO SCH ×2 (10:49→21:14)
[2016-05-20] MEDS: NICOTINE 21 MG PATCH TOPICAL SCH (11:31)
[2016-05-20] MEDS: DOCUSATE SODIUM 100 MG CAPSULE PO SCH ×2 (12:06→21:20)
[2016-05-20] MEDS: MULTIVIT,THER IRON,CA,FA & MIN 1 TABLET PO SCH (12:07)
[2016-05-20] MEDS: HEPARIN 5,000 UNIT/ML VIAL SQ SCH ×2 (12:07→21:20)
[2016-05-20] MEDS: chlordiazePOXIDE 25 MG CAPSULE PO PRN (16:42)
[2016-05-20] MEDS ORDERED: SENNOSIDES/DOCUSATE SODIUM 1 TAB TABLET PO SCH (21:00)
[2016-05-21 06:30] LABS: Mean Cell Volume 104.6 fL (80.0-100.0); Mean Corpuscular HGB Conc 34.1 g/dL (31.0-36.0); Mean Corpuscular Hemoglobin 35.7 pg (26.0-34.0); Platelet Count 208 K/mcL (140-440); RBC 3.68 M/mcL (4.50-5.90); Red Cell Distribution Width 14.1 % (11.5-14.5)
[2016-05-21 06:36] LABS: ALT/SGPT 13 U/l (0-40); Albumin 3.4 gm/dL (3.2-5.2); Albumin/Globulin Ratio 1.5 (1.0-2.3); Alkaline Phosphatase 80 U/L (39-117); Bilirubin,Direct 0.2 mg/dL (0.0-0.3); Blood Urea Nitrogen 5 mg/dl (6-20); C-Reactive Protein 7.7 mg/dl (0.0-0.8); Gamma Glutamyl Transpeptidase 171 U/L (8-61); Phosphorous 3.2 mg/dL (2.7-4.5)
[2016-05-21 06:53] LABS: Band Neutrophils % 1 % (0-10); Basophils % (Manual) 1 % (0-2); Eosinophils % (Manual) 3 % (0-7); Lymphocytes % 12 % (15-49); Macrocytosis 2+ (NONE SEEN); Monocytes % (Manual) 5 % (1-9); Platelet Estimate NORMAL (NORMAL); RBC Morphology ABNORM (NORMAL); Segmented Neutrophils % 76 % (38-78)
[2016-05-21] MEDS ORDERED: PANTOPRAZOLE 40 MG VIAL IV SCH (07:30)
[2016-05-21] MEDS ORDERED: MULTIVIT,THER IRON,CA,FA & MIN 1 TABLET PO SCH (09:00)
[2016-05-21] MEDS: cefTRIAXone 2 GM in DEXTROSE 5% IN WATER 50 ML IV SCH (09:28)
[2016-05-21] MEDS: DOCUSATE SODIUM 100 MG CAPSULE PO SCH (09:29)
[2016-05-21] MEDS: NEUTRA PHOS 1 PACKET PO SCH (09:32)
[2016-05-21] MEDS: HEPARIN 5,000 UNIT/ML VIAL SQ SCH (09:41)
--- NOTE | 2016-05-21 10:18 | Discharge Summary ---
Medical - DS: Prov Patient information: Note initiated : 05/21/16 at 10:12 am Service Date, if different from initiated Date: [] Patient: Yinka Medina 46 y/o M admitted on 05/18/16 for Abd pain N/V/D, Acute Alcoholic Pancreatitis. Chief Complaint: [] Date of admission: 05/18/16 21:27 Discharge date: 05/21/16 Primary care physician: [f_Reg Prim Care Provider] Medical - DS: Meds - Discharge Medications Prescriptions: Cefdinir 300 mg PO BID #6 capsule HYDROcodone/APAP 5/325MG [[place] 5/325Mg] 1 tab PO Q6HP PRN #14 tablet PRN Reason: Pain Active and Home Medications: Home Medications betamethasone, augmented 0.05 % topical ointment 1 applic TOPICAL QDAY PRN #45 g 05/21/16 [Rx Last Taken Unknown] Medical - DS: Hosp Hospital course: DISCHARGE DIAGNOSIS * Acute alcoholic pancreatitis- clinically improved. Advancing diet. Pain resolved. Systemic inflammatory response syndrome resolved. no CT evidence of pancreatic necrosis/pseudocyst. Patient discharging on low fat diet. Aggressive alcohol cessation counseling performed. * complicated UTI- clinically resolved. Continue antibiotics for additional 3 days * SIRS-clinically resolved. white count down to 10.1 from 18.2 * Alcohol withdrawal with psychomotor agitation.clinically resolved * low phosphorus- resolved with replacement * Abdominal pain -clinically resolved * History of hypertension-resume home meds Brief hospital course Mr. Medina is a 46 year old male admitted with acute pancreatitis. 05/18- 46-year-old known alcoholic admitted with epigastric abdominal pain 10 out of 10. initial workup significant for cute pancreatitis. no evidence of choledocholithiasis ongallbladder ultrasound. CT abdomen pending initial [place] 's and [place] score low. However out of proportion pain. Admitted to telemetry in light of system inquiry response syndrome with white count 18,000 tachycardia tachypnea. Associated complicated UTI with pyuria. Await CT to rule out pyelonephritis. On antibiotic coverage, crystalloids, NPO, analgesics and IV antiemetics. patient explained clinical significance of pancreatitis and endoscopic mortality if evidence of necrosis/pseudocyst/infection. lipase over 1000. nitial CRP 4.2. Continue daily trending 05/19- patient had a rough night with severe pain not responding to high dose of Dilaudid and subsequently started on morphine with adequate pain relief down to 4 out of 10. Associated nausea. Systemic infected response syndrome improving with resolving tachycardia. Leukocytosis of 13,000. at bedside. Aggressive alcohol cessation counseling performed. Patient starting to withdraw. On Librium to counter alcohol withdrawal and psychomotor agitation 05/20-Patient clinically improved. CRP uptrending at 14.7. Passing flatus. Much improved pain requiring opioids once in 4 hours. Slept well. Discussed treatment plan. at bedside. Start patient on clear liquids/jellos. no overnight chest pain shortness of breath. MAXIMUM TEMPERATURE 100.4. urine cultures negative so far. white count down from 18.2-> 12.2. magnesium 1.9. Phosphorus 2. transfer to medical floor. Stable hemodynamics. DC antibiotics in 24 hours. 05/21- patient doing well. Tolerating low-fat diet. Abdominal pain resolved. Hemodynamics stable. White count down to 10,000. Feels ready for discharge. Recommend continuing antibiotics for additional 3 days for complicated UTI. Aggressive alcohol cessation counseling performed. Detailed discharge instructions as below Discharge diagnosis: acute pancreatitis, complicated UTI, SIRS - Time Spent with Patient Total time spent providing and/or coordinating discharge services: Greater than 30 minutes Medical - DS: Exam - Constitutional Vitals: Vital Signs Temp Pulse Pulse Resp BP Pulse Ox 05/21/16 07:58 91 H 96 05/21/16 07:39 97.9 F 81 20 162/110 05/21/16 04:27 98.4 F 75 16 153/99 93 05/20/16 23:57 98.2 F 85 20 162/108 94 05/20/16 20:08 97.7 F 84 20 169/97 94 05/20/16 17:54 100.0 F H 86 177/108 05/20/16 16:00 100.5 F H 91 H 18 181/105 94 05/20/16 12:00 98.9 F 84 16 172/98 98 Intake and Output 05/20/16 05/21/16 05/21/16 21:59 05:59 13:59 Intake Total 600 / 600 700 / 700 240 / 240 Output Total 1949 1225 / 1225 Balance -1350 / -1350 -525 / -525 240 / 240 Intake: Oral 600 / 600 700 / 700 240 / 240 Output: Void Amount 1950 / 1950 1150 / 1150 Stool 75 / 75 Other: Meal Dinner Breakfast Percent of Meal Consumed 100% 100% Feeding Ability Independent # Bowel Movements 1 1 Weight 237 lb 8 oz General appearance: cooperative, no acute distress Medical - DS: Data Labs on day of discharge: Labs from last 24 hours 05/21/16 05/21/16 05:05 05:05 WBC 10.1 RBC 3.68 L Hgb 13.1 L Hct 38.5 L MCV 104.6 H MCH 35.7 H MCHC 34.1 RDW 14.1 Plt Count 208 MPV 8.7 Total Counted 100 Seg Neutrophils % 76 Band Neutrophils % 1 Lymphocytes % 12 L Monocytes % (Manual) 5 Eosinophils % (Manual) 3 Basophils % (Manual) 1 Reactive Lymphocytes 2 Platelet Estimate Normal RBC Morphology Abnorm A Macrocytosis 2+ A Sodium 132 L Potassium 3.1 L Chloride 93 L Carbon Dioxide 23 Anion Gap 16.0 BUN 5 L Creatinine 0.6 L GFR Calculation 121 Glucose 90 Uric Acid 3.0 Calcium 8.1 L Phosphorus 3.2 Magnesium 2.0 Total Bilirubin 0.6 Direct Bilirubin 0.2 GGT 171 H AST 24 ALT 13 Alkaline Phosphatase 80 Lactate Dehydrogenase 162 C-Reactive Protein 7.7 H Total Protein 5.7 L Albumin 3.4 Globulin 2.3 Albumin/Globulin Ratio 1.5 Triglycerides 103 Medical - DS: A/P - Patient/Caregiver Discharge Instructions Activity: increase activity as tolerated Diet: Low Fat Additional Instructions: Follow-up PCP in 5 days I recommend SNF physician to check INR, CBC BMP UA as a posthospital follow-up and Chest x-ray in 1 week. Antibiotics for additional 3 days Return to ER if worsening abdominal pain,fever chills , diarrhea Review risk and side effect profile of medications including antibiotics. Side effect may include mild to severe reaction including rash, diarrhea, cdiff and even which can be prevented by close follow-up with PCP and monitoring for side effects Refrain from alcohol use. High risk life threatening recurrent pancreatitis Continue diet and activity as advised Discussed importance of medication adherence Please review medication list with patient prior to discharge Please schedule follow-up with PCP/Providers prior to discharge and provide printouts Portions of this chart may have been created with [email or web address] voice recognition software. Occasional wrong-word or ?sound-like? substitutions may have occurred due to the inherent limitations of voice recognition software. Please read the chart carefully and recognize, using context, where the substitutions have occurred. CC- PCP Prescriptions: Cefdinir 300 mg PO BID #6 capsule HYDROcodone/APAP 5/325MG [[place] 5/325Mg] 1 tab PO Q6HP PRN #14 tablet PRN Reason: Pain - Problem Maintenance (1) Acute alcoholic pancreatitis Status: Acute - Follow up Plan Follow up with: Chico Jett MD [Primary Care Provider] - Disposition: Home, Self-Care Prognosis: Good Rehab Potential: Good I certify that the patient requires SNF services: No Overall status at discharge: patient is progressing back to baseline Medical - DS: Qual - VTE Deep Vein Thrombosis/Pulmonary Embolism Present on Admission: No
[2016-05-21] MEDS: LEVOFLOXACIN 750 MG/150 ML BAG IV SCH (10:48)
[2016-05-21] MEDS: NICOTINE 21 MG PATCH TOPICAL SCH (11:09)
[2016-05-21] MEDS: chlordiazePOXIDE 25 MG CAPSULE PO PRN (14:28)
== END 2016-05-21 15:55 | disposition home or self-care (01) | DRG 871 ==
LOC: ED 16:21 → ICU 21:27 → MEDSUR 05-20 13:00
PROVIDERS: ADMIT Internal Medicine; ATTEND Internal Medicine

== ENCOUNTER 2018-02-14 13:28 | Inpatient (IN) ==
[2018-02-14] MEDS ORDERED: IOPAMIDOL 100 ML BOTTLE IV ONE (13:29)
[2018-02-14] MEDS ORDERED: 0.9 % SODIUM CHLORIDE 1,000 ML IV ONE (13:37)
[2018-02-14] MEDS ORDERED: ONDANSETRON 4 MG/2 ML VIAL IV ONE (13:42)
[2018-02-14] MEDS: HYDROmorphone 2 MG/ML VIAL IV PRN ×6 (13:47→19:55)
--- NOTE | 2018-02-14 13:48 | Emergency Department Note ---
Abdominal Pain HPI - General Chief Complaint: Abdominal Pain Stated Complaint: upper abdominal pain Time Seen by Provider: 02/14/18 13:45 Source: patient Mode of arrival: ambulatory Limitations: no limitations - History of Present Illness HPI Narrative: This pleasant 47-year-old male comes in by private car after awakening around 6 AM this morning with severe epigastric area pain. It is similar to previous episodes of pancreatitis which he has had and which he states are attributed to his alcohol intake. He did drink a plus drinks of whiskey last evening. He did not have a hangover this morning. Pain is nonradiating in nature. He vomited once this morning also had an episode of diarrhea this morning. He does not remember any hematochezia or melena. He has felt some chills and sweats. REVIEW OF SYSTEMS: Has had some chest pains. Some chronic cough. Feels some shortness of breath. No wheezing. He does smoke. Denies dysuria or frequency. Denies back pain Denies anxiety. claims that he has depression. Has some significant snoring possible occasional pauses. - Related Data Previous Rx's Medication Instructions Recorded losartan 100 mg tablet 100 mg PO QDAY #30 tab 12/24/17 Allergies Allergy/AdvReac Type Severity Reaction Status Date / Time ceftriaxone AdvReac Redness of Verified 03/15/17 13:00 Skin Abdominal Pain PMH - Past Medical History Medical history: Reports: hypertension, other (DENIES: JOSE A, Murmur.). Denies: CVA, DVT, DM, hyperlipidemia, myocardial infarction, pulmonary embolus Reports: pancreatitis. Denies: diverticulitis, kidney stone, peptic ulcer disease Psychiatric history: Reports: no psych history Family history: Reports: no significant family history - Social History Smoking status: Current every day smoker (1 pk/d) Alcohol use: Reports: Occasionally Drug use: Reports: none. Denies: marijuana Physical Exam Limitations: no limitations General appearance: alert, in distress (pain constant with intermittent exacerbations) Head: atraumatic, normocephalic Eye: Present: normal appearance, PERRL, EOMI. Absent: scleral icterus, conjunctival injection ENT: normal oropharynx, mucous membranes dry Neck: Present: trachea midline. Absent: lymphadenopathy, thyromegaly Respiratory: Present: normal lung sounds bilaterally. Absent: respiratory distress, wheezes, stridor, accessory muscle use, prolonged expiratory phase Cardiovascular: Present: regular rate, normal rhythm. Absent: systolic murmur, diastolic murmur Abdominal: Present: soft, tenderness, guarding. Absent: distention, rebound, rigidity, organomegaly, mass Abdominal tenderness: Present: LUQ, epigastrium Extremities: Absent: pedal edema, pretibial edema, calf tenderness Neurological: Present: alert, oriented X3 Psychiatric: Present: agitated (Some mildly from pain) Skin: Present: warm, dry Course Course Narrative: 1:37 PM - epigastric sudden onset of pain this morning after alcohol intake last night that is mimicking previous pancreatitis episodes. We will do labs and ultrasound since he has had CT in the past 1 year. We will do plain films to consider free air. 2:50 PM - ultrasound was negative for disease of gallbladder. Pancreas not easily visualized. We will do CT scan. 3:10 PM - pain reported by nursing is still 10 out of 10 and he has had 2 mg of Dilaudid. We will give a trial of fentanyl IV. 5:10 PM - radiologist reports that there is much more severe pancreatitis than previous with severe inflammation of the whole gland and narrowing of the proximal duodenum. The edema extends into the retroperitoneal space into the perirenal space. There is no necrosis or anything to have drainage. I will discuss with hospitalist. Patient agrees for inpatient treatment. Vital Signs Temperature 97.5 F 02/14/18 13:28 Pulse Rate 105 H 02/14/18 13:28 Respiratory Rate 12 02/14/18 13:28 Blood Pressure 196/119 02/14/18 13:28 Pulse Oximetry (%) 100 02/14/18 13:28 Temperature 97.5 F 02/14/18 13:28 Pulse Rate 117 H 02/14/18 16:06 Respiratory Rate 18 02/14/18 16:06 Blood Pressure 187/119 02/14/18 16:01 Pulse Oximetry (%) 98 02/14/18 16:06 Abdominal Pain - Lab Data Lab results reviewed: Yes I reviewed the patient's lab results. Result diagrams: 02/14/18 13:41 02/14/18 13:41 Lab Results 02/14/18 02/14/18 02/14/18 Range/Units 13:41 13:41 13:41 WBC 15.4 H (4.5-11.0) K/mcL RBC 4.15 L (4.50-5.90) M/mcL Hgb 15.0 (13.5-16.5) g/dL Hct 43.9 (41.0-55.0) % MCV 105.7 H (80.0-100.0) fL MCH 36.1 H (26.0-34.0) pg MCHC 34.1 (31.0-36.0) g/dL RDW 14.2 (11.5-14.5) % Plt Count 319 (140-440) K/mcL MPV 8.9 (7.4-10.4) fL Gran % 88.8 H (38.0-78.0) % Lymph % (Auto) 7.7 L (15.5-49.0) % Harmon % (Auto) 3.0 (1.0-12.0) % Eos % (Auto) 0 (0.0-7.0) % Baso % (Auto) 0.5 (0.0-2.0) % Gran # 13.7 H (1.8-8.0) K/mcL Lymph # (Auto) 1.2 L (1.5-4.8) K/mcL Harmon # (Auto) 0.5 (0.1-0.9) K/mcL Eos # (Auto) 0 (0.0-0.7) K/mcL Baso # (Auto) 0.1 (0.0-0.3) K/mcL Sodium 135 (133-145) mmol/L Potassium 3.7 (3.3-5.1) mmol/L Chloride 98 (96-108) mmol/L Carbon Dioxide 19 L (22-30) mmol/L Anion Gap 18.0 H (8-16) BUN 12 (6-20) mg/dl Creatinine 0.9 (0.7-1.2) mg/dl GFR Calculation 101 Glucose 168 H (70-105) mg/dL Calcium 8.7 (8.6-10.4) mg/dl Total Bilirubin 0.3 (0.0-1.0) mg/dL AST 47 H (0-37) U/l ALT 42 H (0-40) U/l Alkaline Phosphatase 92 (39-117) U/L Troponin T < 0.01 (0-0.03) ng/ml Total Protein 7.5 (5.9-8.4) gm/dL Albumin 4.2 (3.2-5.2) gm/dL Globulin 3.3 (2.2-3.7) gm/dL Albumin/Globulin Ratio 1.3 (1.0-2.3) Amylase 187 H (28-100) U/L Lipase 1275 H (7-60) U/L - Radiology Data Radiology results reviewed: Yes I reviewed the patient's radiology results. - EKG Data EKG results narrative: No acute coronary syndrome findings. This ECG will be read by a sports attorney. Disposition Pt seen by PLATE DEVELOPER/PA only: No Clinical Impression: Macrocytosis without anemia, Alcoholism /alcohol abuse Acute alcoholic pancreatitis Qualifiers: Acute pancreatitis complication: no infection or necrosis Qualified Code(s): K85.20 - Alcohol induced acute pancreatitis without necrosis or infection Summary: See "COURSE" above. Patient severe pancreatitis needs inpatient treatment for fluid and fluid balances as well as pain control as it is been quite difficult to control his pain. I spoke with the hospitalist, Dr. Triana, who kindly accepts care of this patient. Consider vitamin supplementation because his rather severe macrocytosis. Disposition: Xfer As Inpt ([facility]) Condition: Fair Referrals: Chico Jett MD [Primary Care Provider] -
[2018-02-14 14:15] LABS: Basophils # (Auto) 0.1 K/mcL (0.0-0.3); Basophils % (Auto) 0.5 % (0.0-2.0); Eosinophils # (Auto) 0 K/mcL (0.0-0.7); Eosinophils % (Auto) 0 % (0.0-7.0); Granulocytes % (Auto) 88.8 % (38.0-78.0); Lymphocytes # (Auto) 1.2 K/mcL (1.5-4.8); Lymphocytes % (Auto) 7.7 % (15.5-49.0); Mean Cell Volume 105.7 fL (80.0-100.0); Mean Corpuscular HGB Conc 34.1 g/dL (31.0-36.0); Mean Corpuscular Hemoglobin 36.1 pg (26.0-34.0); Monocytes # (Auto) 0.5 K/mcL (0.1-0.9); Platelet Count 319 K/mcL (140-440); RBC 4.15 M/mcL (4.50-5.90); Red Cell Distribution Width 14.2 % (11.5-14.5)
--- NOTE | 2018-02-14 14:30 | XRay Report ---
HISTORY: Severe abdominal pain FINDINGS: A moderate amount of fluid is present in the stomach but it is not overly distended. Air is present in nondistended loops of large and small intestine. No free intra-abdominal air is present. There is no apparent soft tissue mass or abnormal calcification. IMPRESSION: No acute abnormality Interpreted and Authenticated by: Brayan Palmer 02/14/18
[2018-02-14 14:54] LABS: ALT/SGPT 42 U/l (0-40); Albumin 4.2 gm/dL (3.2-5.2); Albumin/Globulin Ratio 1.3 (1.0-2.3); Alkaline Phosphatase 92 U/L (39-117); Amylase 187 U/L (28-100); Blood Urea Nitrogen 12 mg/dl (6-20); Lipase 1275 U/L (7-60)
[2018-02-14] MEDS ORDERED: fentaNYL 100 MCG/2 ML VIAL IV ONE (15:12)
[2018-02-14] MEDS ORDERED: HYDROmorphone 2 MG/ML VIAL IV ONE ×2 (16:15→18:08)
[2018-02-14] MEDS ORDERED: 0.9 % SODIUM CHLORIDE 2,000 ML IV ONE (16:15)
[2018-02-14] MEDS ORDERED: HYDROmorphone 2 MG/ML VIAL IV SCH (18:00)
[2018-02-14] MEDS ORDERED: LORazepam 2 MG/ML VIAL IV PRN (18:01)
[2018-02-14] MEDS ORDERED: cloNIDine HCL 0.1 MG TABLET PO PRN (18:01)
--- NOTE | 2018-02-14 18:12 | Internal Med History&Physical ---
Medical - H&P: HPI Patient information: Note initiated : 02/14/18 at 6:08 pm Service Date, if different from initiated Date: [] Patient: Yinka Medina a 47 y/o M admitted on for upper abdominal pain. Chief Complaint: [] History of present illness: Mr. Medina is a 47 year old M With history of pancreatitis and alcohol abuse. Drinks at least a sixpack per day as well as liquor. But had a hard time obtaining exact amount. He did drink more than usual last night and woke up this morning at 6 AM with severe sharp shooting abdominal pain radiated to the back 10 out of 10 pain. Last time he was in the hospital for pink otitis was 2 years ago. He did have an episode of nausea vomiting this morning had an episode of diarrhea this morning. Has chills. Does have a chronic cough. He does have some shortness of breath because of shallow breathing from severe abdominal pain. Does have sweats as well. In the ER he was found to have acute pancreatitis imaging shows severe inflammatory changes. No pseudocyst or necrosis noted or abscess. Patient is requiring a high dose of narcotics.. Ultrasound of the gallbladder was unremarkable. Patient was tachycardic when he came in and over a little bit blood pressure. Other vital signs stable. Good oxygenation. Normal saline bolus in the ED. Review of Systems: Positive for severe abdominal pain and nausea vomiting diarrhea chills shortness of breath from abdominal pain and chronic cough. And diaphoresis. Denies headache/fever/diarrhea. Remaining 10 point review of systems reviewed and negative Medical - H&P: PMH Medical history: Medical History Pancreatitis (Acute) Urinary tract infection (Acute) Pancreatitis, alcoholic, acute (Resolved) Sinusitis (Chronic) Hypertension (Chronic) Past Surgical History History of reconstruction of anterior cruciate ligament tear (Acute) Shoulder surgery Family history: Mother diabetes Father had unknown history Social history Patient smokes 1 pack/day of cigarettes Patient drinks at least a sixpack of beer without with liquor nightly Patient denies drug use Patient lives at home with Medical - H&P: Meds Home Medications Medication Instructions Recorded Confirmed Type losartan 100 mg tablet 100 mg PO QDAY #30 tab 12/24/17 02/14/18 Rx Allergies Allergy/AdvReac Type Severity Reaction Status Date / Time ceftriaxone AdvReac Redness of Verified 12/22/17 13:00 Skin Medical - H&P: Exam - Constitutional Vitals: Temp Pulse Resp BP Pulse Ox 97.5 F 117 H 18 187/119 98 02/14/18 13:28 02/14/18 16:06 02/14/18 16:06 02/14/18 16:01 02/14/18 16:06 Exam: General: Alert, Awake, No acute Distress Eyes/N/T: EOMI, dry mucous membranes Head/Neck: neck supple, normocephalic atraumatic CV: RRR, No murmurs, normal s1/s2 Pulm: Clear b/l, no wheezing/rhonchi/rales Abd: soft, +BS x4, tenderness to palpation epigastric Ext: no clubbing/cyanosis/edema Neuro: Alert, no focal deficits, moves all extremities Skin: warm/dry Medical - H&P: Reslt - Labs CBC & Chem 7: 02/14/18 13:41 02/14/18 13:41 Labs: Short CBC 02/14/18 Range/Units 13:41 WBC 15.4 H (4.5-11.0) K/mcL Hgb 15.0 (13.5-16.5) g/dL Hct 43.9 (41.0-55.0) % Plt Count 319 (140-440) K/mcL BMP 02/14/18 13:41 Sodium 135 Potassium 3.7 Chloride 98 Carbon Dioxide 19 L BUN 12 Creatinine 0.9 Glucose 168 H Calcium 8.7 Cardiac Enzymes 02/14/18 Range/Units 13:41 Troponin T < 0.01 (0-0.03) ng/ml Liver Function 02/14/18 Range/Units 13:41 Total Bilirubin 0.3 (0.0-1.0) mg/dL AST 47 H (0-37) U/l ALT 42 H (0-40) U/l Alkaline Phosphatase 92 (39-117) U/L Albumin 4.2 (3.2-5.2) gm/dL - Impressions Report per to ER physician from radiologist was severe pancreatitis Gallbladder ultrasound unremarkable Medical - H&P: A/P - Narrative A/P Narrative: A: *Acute pancreatitis: 2/2 alcohol abuse -Gallbladder ultrasound unremarkable *Alcohol abuse: *Tobacco abuse *Hypertension: *Macrocytosis: 2/2 etoh abuse * * P: -Aggressive IV fluid hydration -Monitor urine output, electrolytes, glucose -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
[2018-02-14] MEDS ORDERED: LORazepam 2 MG/ML VIAL IV ONE (18:34)
[2018-02-14] MEDS: fentaNYL 100 MCG/2 ML VIAL IV PRN ×2 (18:40→20:17)
--- NOTE | 2018-02-14 19:22 | Ultrasound Report ---
History: Upper abdominal pain FINDINGS: The body the pancreas is enlarged and edematous. The details obscured by bowel gas. The head is also incompletely visualized. A small rim of edema anterior to the neck and body the pancreas. No pseudocyst or abscess are present. The pancreatic duct is nondilated. The liver is incompletely visualized due to body habitus and patient discomfort. No gross abnormality is seen within the liver. The gallbladder appears normal no stones or thickening of the wall. The common bile duct measures approximately 5 mm. Portal vein was not visualized. IMPRESSION: Enlarged edematous pancreas. This is more likely due to pancreatitis rather than a neoplasm. Interpreted and Authenticated by: Brayan Palmer 02/14/18
--- NOTE | 2018-02-14 19:23 | Cat Scan Report ---
CLINICAL INFORMATION: Pancreatitis with upper abdominal pain COMPARISON: None. TECHNIQUE: Following oral contrast and the injection of intravenous contrast the patient was scanned during the portal venous phase from the diaphragm through the symphysis pubis. Sagittal and coronal reformats were created.. The radiation exposure was limited using dose reduction technology. FINDINGS: Liver is normal in size. There is mild generalized fatty infiltration. The gallbladder and bile ducts are normal. Patient has severe diffuse pancreatitis. There is a large amount of inflammation and edema of the retroperitoneal fat surrounding the pancreas. The inflammatory changes extend into the anterior paracolic gutters bilaterally and the root of the mesentery as well as the neil hepatis. There is a trace amount of ascites lateral to the spleen. There is no apparent necrosis in the pancreas. No abscess or pseudocyst are present. The pancreatic duct is nondilated and there are no calcifications within the pancreas. The swelling in the head is causing narrowing of the lumen of the second portion of the duodenum. Peripheral contrast is able to pass through this narrowed segment of duodenum into normal caliber jejunum area The adrenals and kidneys are normal. The aorta is normal in caliber. There are few calcified plaques in the aorta and iliac arteries. The pelvis is normal. No adenopathy is present. IMPRESSION: Severe acute pancreatitis Dr. Corbin was called with the results Interpreted and Authenticated by: Brayan Palmer 02/14/18
[2018-02-14] MEDS ORDERED: ONDANSETRON 4 MG/2 ML VIAL IV PRN (20:05)
[2018-02-14] MEDS ORDERED: PROCHLORPERAZINE 25 MG SUPP.RECT PR PRN (20:05)
[2018-02-14] MEDS ORDERED: DEXTROSE 31 GM ORAL.SUSP PO PRN (20:05)
[2018-02-14] MEDS ORDERED: BISACODYL 5 MG TABLET PO PRN (20:05)
[2018-02-14] MEDS ORDERED: LACTULOSE 20 GM/30 ML ORAL.SOL PO PRN (20:05)
[2018-02-14] MEDS ORDERED: DEXTROSE 50% 50 ML VIAL IV PRN (20:05)
[2018-02-14] MEDS ORDERED: ACETAMINOPHEN 325 MG TABLET PO PRN (20:05)
[2018-02-14] MEDS: 0.9 % SODIUM CHLORIDE 1,000 ML IV SCH (20:19)
[2018-02-14] MEDS: LABETALOL HCL 20 MG/4 ML SYRINGE IV PRN (20:57)
[2018-02-14 21:42] LABS: ALT/SGPT 36 U/l (0-40); Albumin/Globulin Ratio 1.3 (1.0-2.3); Alkaline Phosphatase 89 U/L (39-117); Bilirubin,Direct < 0.2 mg/dL (0.0-0.3); Blood Urea Nitrogen 11 mg/dl (6-20); Gamma Glutamyl Transpeptidase 192 U/L (8-61); Uric Acid 5.4 mg/dL (2.5-8.0)
[2018-02-14] MEDS ORDERED: MAGNESIUM SULFATE 2 GM/50 ML BAG IV ONE (21:44)
[2018-02-14] MEDS: HYDROmorphone PCA 30 MG/30 ML PCA.VIAL IV PRN (22:10)
[2018-02-14] MEDS ORDERED: CALCIUM GLUCONATE 4.65 MEQ/10 ML VIAL ONE (22:27)
[2018-02-14] MEDS: CALCIUM GLUCONATE 4.65 MEQ/10 ML VIAL IV ONE ×2 (22:34→22:42)
[2018-02-14] MEDS: INSULIN LISPRO 1 UNIT/0.01 ML UNIT SQ SCH (22:41)
[2018-02-14] MEDS: DOCUSATE SODIUM 100 MG CAPSULE PO SCH (22:41)
[2018-02-14] MEDS: FAMOTIDINE/PF 20 MG/2 ML VIAL IV SCH (22:44)
[2018-02-14] MEDS: 0.9 % SODIUM CHLORIDE 10 ML SYRINGE IV SCH (22:45)
[2018-02-15] MEDS: HYDROmorphone PCA 30 MG/30 ML PCA.VIAL IV PRN (00:46)
[2018-02-15] MEDS: 0.9 % SODIUM CHLORIDE 1,000 ML IV SCH ×5 (00:53→16:55)
[2018-02-15] MEDS: INSULIN LISPRO 1 UNIT/0.01 ML UNIT SQ SCH ×5 (00:54→18:29)
[2018-02-15 03:00] LABS: Appearance,Urine CLEAR; Bacteria,Urine 0 /hpf (0); Bilirubin,Urine NEG (NEG); Color,Urine YELLOW; Glucose,Urine (UA) NEGATIVE (NEG); Leukocyte Esterase,Urine NEG /uL (NEG); Mucus,Urine MOD /hpf (0); Protein,Urine NEG (NEG); Specific Gravity,Urine 1.044 (1.000-1.035); Urine Blood NEG mg/dL (<0.03); Urine Hyaline Cast 4 /lpf (0-2); Urine RBC < 1 /hpf (0-1); Urine Squamous Epithelial Cell 0 /hpf (0-4); Urine Transitional Epi Cells < 1 /hpf (0-2); Urine WBC 1 /hpf (0-4); Urobilinogen,Urine NEG (NEG)
[2018-02-15] MEDS: LABETALOL HCL 20 MG/4 ML SYRINGE IV PRN (04:04)
[2018-02-15] MEDS: 0.9 % SODIUM CHLORIDE 10 ML SYRINGE IV SCH ×2 (05:56→14:26)
[2018-02-15 06:47] LABS: Basophils # (Auto) 0 K/mcL (0.0-0.3); Basophils % (Auto) 0 % (0.0-2.0); Eosinophils # (Auto) 0 K/mcL (0.0-0.7); Eosinophils % (Auto) 0 % (0.0-7.0); Lymphocytes # (Auto) 0.6 K/mcL (1.5-4.8); Lymphocytes % (Auto) 2.7 % (15.5-49.0); Mean Cell Volume 107.3 fL (80.0-100.0); Mean Corpuscular HGB Conc 33.8 g/dL (31.0-36.0); Mean Corpuscular Hemoglobin 36.2 pg (26.0-34.0); Monocytes # (Auto) 0.7 K/mcL (0.1-0.9); Monocytes % (Auto) 3.3 % (1.0-12.0); Platelet Count 236 K/mcL (140-440); RBC 4.41 M/mcL (4.50-5.90); Red Cell Distribution Width 14.6 % (11.5-14.5)
--- NOTE | 2018-02-15 07:18 | Internal Med Progress Note ---
Medical - PN: Subj Patient information: Note initiated : 02/15/18 at 7:13 am Service Date, if different from initiated Date: [] Patient: Yinka Medina a 47 y/o M admitted on 02/14/18 for upper abdominal pain. Chief Complaint: [] Interval history: Mr. Medina is a 47 year old M With history of pancreatitis and alcohol abuse. Drinks at least a sixpack per day as well as liquor. But had a hard time obtaining exact amount. He did drink more than usual last night and woke up this morning at 6 AM with severe sharp shooting abdominal pain radiated to the back 10 out of 10 pain. Last time he was in the hospital for pink otitis was 2 years ago. He did have an episode of nausea vomiting this morning had an episode of diarrhea this morning. Has chills. Does have a chronic cough. He does have some shortness of breath because of shallow breathing from severe abdominal pain. Does have sweats as well. In the ER he was found to have acute pancreatitis imaging shows severe inflammatory changes. No pseudocyst or necrosis noted or abscess. Patient is requiring a high dose of narcotics.. Ultrasound of the gallbladder was unremarkable. Patient was tachycardic when he came in and elevated blood pressure, Other vital signs stable, Good oxygenation. Normal saline bolus 2L's in the ED. 02/15 Did get some sleep last night. Abdominal pain still present but improving. No nausea vomiting diarrhea. Review of Systems: denies headache/fever/chills/nausea/vomiting/chest pain/cough/dyspnea/diarrhea. Otherwise see above. - Constitutional Vitals: Vital Signs Temp Pulse Resp BP Pulse Ox 97.2 F 106 H 25 H 129/99 93 02/15/18 04:12 02/15/18 04:12 02/15/18 04:41 02/15/18 04:12 02/15/18 04:12 Period Temp Pulse Resp BP Sys/Armenta Pulse Ox Last 24 Hr 97.2 F-98.1 F 95-138 12-32 129-196/99-166 91-100 Intake and Output 02/14/18 02/15/18 02/15/18 21:59 05:59 13:59 Intake Total 3000 / 3000 1946 / 1946 Output Total 475 / 475 Balance 3000 / 3000 1471 / 1471 Weight 114.759 kg Intake & Output: Intake & Output 02/14/18 02/15/18 02/15/18 21:59 05:59 13:59 Intake Total 3000 / 3000 194 / 194 Output Total 475 / 475 Balance 3000 / 3000 1471 / 1471 Weight 114.759 kg Intake: IV 3000 / 3000 1941 / 1941 Sodium Chloride 0.9% 1,000 ml @ 3000 / 3000 1892 / 1892 250 mls/hr IV .Q4H [facility] Rx#: [id number] FITTER UP 4 / 4 Output: Void Amount 475 / 475 Other: # Voids 1 Exam: General: Alert, Awake, No acute Distress Eyes/N/T: EOMI, Head/Neck: neck supple CV: RRR, No murmurs, normal s1/s2 Pulm: Clear b/l, no wheezing/rhonchi/rales Abd: soft, +BS x4, tenderness to palpation epigastric Ext: no clubbing/cyanosis/edema Neuro: Alert, no focal deficits, moves all extremities Skin: warm/dry Medical - PN: Obj Da - Labs CBC & Chem 7: 02/15/18 03:36 02/15/18 03:36 Labs: Abnormal Lab Results 02/15/18 02/15/18 02/14/18 03:36 01:30 20:05 WBC 22.3 H RBC 4.41 L MCV 107.3 H MCH 36.2 H RDW 14.6 H Gran % 94.0 H Lymph % (Auto) 2.7 L Gran # 20.9 H Lymph # (Auto) 0.6 L Carbon Dioxide 17 L Anion Gap 17.0 H Glucose 142 H Calcium 7.8 L Magnesium 1.2 L GGT 192 H AST 43 H ALT Amylase Lipase Ur Specific [place] 1.044 H Hyaline Casts 4 H 02/14/18 02/14/18 13:41 13:41 WBC 15.4 H RBC 4.15 L MCV 105.7 H MCH 36.1 H RDW Gran % 88.8 H Lymph % (Auto) 7.7 L Gran # 13.7 H Lymph # (Auto) 1.2 L Carbon Dioxide 19 L Anion Gap 18.0 H Glucose 168 H Calcium Magnesium GGT AST 47 H ALT 42 H Amylase 187 H Lipase 1275 H Ur Specific [place] Hyaline Casts Meds: Medications Acetaminophen (Tylenol) 650 mg PO Q6HP PRN PRN Reason: PAIN/FEVER > 101 Hydrocodone Bitart/Acetaminophen ([place] 5/325mg) 1 tab PO Q4HP PRN PRN Reason: PAIN LEVEL 3-6 Bisacodyl (Dulcolax) 10 mg PO DAILYP PRN PRN Reason: Constipation Clonidine HCl (Catapres) 0.1 mg PO Q4HP PRN PRN Reason: Alcohol Withdrawal Dextrose (Dextrose 50%) 0 ml IV UD PRN PRN Reason: Hypoglycemia Diagnostic Test (Pha) (Accu-Chek) 1 each FS Q6 [facility] Last Admin: 02/15/18 05:49 Dose: 1 each Docusate Sodium (Colace) 100 mg PO BID [facility] Last Admin: 02/14/18 22:41 Dose: Not Given Enoxaparin Sodium (Lovenox) 40 mg SQ DAILY [facility] Famotidine (Pepcid) 20 mg IV Q12 [facility] Last Admin: 02/14/18 22:44 Dose: 20 mg Fentanyl (Sublimaze) 25 mcg IV Q1HP PRN PRN Reason: PAIN LEVEL > 6 Last Admin: 02/14/18 20:17 Dose: 25 mcg Folic Acid (Folic Acid) 1 mg PO DAILY [facility] Glucose (Insta-Glucose) 15 gm PO PRN PRN PRN Reason: Hypoglycemia Hydromorphone HCl (Dilaudid B2B Sales Professional) 30 mg IV UD PRN; Protocol PRN Reason: Pain Last Admin: 02/15/18 00:46 Dose: 30 mg Thiamine HCl 100 mg/ Sodium (Chloride) 51 mls @ 50 mls/hr IV DAILY [facility] Sodium Chloride (Sodium Chloride 0.9%) 1,000 mls @ 250 mls/hr IV .Q4H [facility] Last Admin: 02/15/18 04:28 Dose: 250 mls/hr Insulin Human Lispro (Humalog) 0 unit SQ Q6 [facility]; Protocol Last Admin: 02/15/18 05:50 Dose: Not Given Labetalol HCl (Labetalol Hcl) 0 mg IV Q2HP PRN PRN Reason: Hypertension Last Admin: 02/15/18 04:04 Dose: 10 mg Lactulose (Cephulac) 10 gm PO DAILYP PRN PRN Reason: Constipation Lorazepam (Ativan) 0 mg IV Q4HP PRN; Protocol PRN Reason: Alcohol Withdrawal Ondansetron HCl (Zofran) 4 mg IV Q4HP PRN PRN Reason: Nausea And Vomiting Last Admin: 02/14/18 20:44 Dose: 4 mg Prochlorperazine Maleate (Compazine) 12.5 mg IA Q12HP PRN PRN Reason: Nausea And Vomiting Promethazine HCl (Phenergan) 12.5 mg PO Q6HP PRN PRN Reason: Nausea And Vomiting Sodium Chloride (Saline Flush) 10 ml IV Q8 [facility] Last Admin: 02/15/18 05:56 Dose: Not Given Medical - PN: A/P - Time Spent With Patient Total time spent is greater than 50% in coordination of care (as documented) at patient's floor/unit and/or counseling patient: - Narrative A/P Narrative: A: *Acute pancreatitis: 2/2 alcohol abuse -Gallbladder ultrasound unremarkable *Alcohol abuse: *Tobacco abuse *Hypertension: improved with pain control *Macrocytosis: 2/2 etoh abuse * P: -Aggressive IV fluid hydration, decrease today -Monitor urine output, electrolytes, glucose -Pain control, started on Dilaudid FITTER UP -CIWA protocol, vitamins, prn benzo -BP meds -b12/folate check -smoking cessation counseling -ppx: [facility] Medical - PN: Qual - VTE Deep Vein Thrombosis/Pulmonary Embolism Present on Admission: No
[2018-02-15 07:23] LABS: ALT/SGPT 31 U/l (0-40); Albumin 3.5 gm/dL (3.2-5.2); Albumin/Globulin Ratio 1.3 (1.0-2.3); Alkaline Phosphatase 79 U/L (39-117); Bilirubin,Direct < 0.2 mg/dL (0.0-0.3); Blood Urea Nitrogen 12 mg/dl (6-20); Gamma Glutamyl Transpeptidase 172 U/L (8-61); Uric Acid 5.1 mg/dL (2.5-8.0)
[2018-02-15] MEDS ORDERED: ENOXAPARIN 40 MG/0.4 ML SYRINGE SQ SCH (09:00)
[2018-02-15] MEDS ORDERED: THIAMINE 100 MG in 0.9 % SODIUM CHLORIDE 50 ML IV SCH (09:00)
[2018-02-15] MEDS ORDERED: FOLIC ACID 1 MG TABLET PO SCH ×2 (09:00)
[2018-02-15] MEDS: FAMOTIDINE/PF 20 MG/2 ML VIAL IV SCH ×2 (09:43→20:14)
[2018-02-15] MEDS: PROMETHAZINE 25 MG TABLET PO PRN ×2 (09:43→14:24)
[2018-02-15] MEDS: DOCUSATE SODIUM 100 MG CAPSULE PO SCH ×2 (09:44→20:14)
[2018-02-15] MEDS: HYDROcodone/APAP 5/325MG TABLET PO PRN ×2 (09:44→14:24)
[2018-02-15] MEDS: cloNIDine HCL 0.1 MG TABLET PO PRN ×3 (09:44→20:20)
[2018-02-15] MEDS ORDERED: NICOTINE 21 MG PATCH TOPICAL SCH (10:00)
[2018-02-15] MEDS: LORazepam 2 MG/ML VIAL IV PRN ×5 (16:04→23:46)
[2018-02-15] MEDS ORDERED: METOPROLOL TARTRATE 5 MG/5 ML VIAL IV ONE (17:41)
[2018-02-15 19:56] LABS: Appearance,Urine HAZY; Bacteria,Urine 0 /hpf (0); Color,Urine YELLOW; Glucose,Urine (UA) NEGATIVE (NEG); Ictotest,Urine NEG (NEG); Leukocyte Esterase,Urine NEG /uL (NEG); Mucus,Urine MANY /hpf (0); Protein,Urine 100 mg/dL (NEG); Specific Gravity,Urine 1.032 (1.000-1.035); Urine Amorphous Crystals FEW /hpf (0); Urine Blood NEG mg/dL (<0.03); Urine Hyaline Cast 101 /lpf (0-2); Urine RBC 1 /hpf (0-1); Urine Squamous Epithelial Cell 1 /hpf (0-4); Urine WBC 2 /hpf (0-4); Urobilinogen,Urine NEG (NEG)
[2018-02-15] MEDS ORDERED: PHYTONADIONE 2.5 MG in 0.9 % SODIUM CHLORIDE 50 ML IV ONE (22:47)
[2018-02-16] MEDS: 0.9 % SODIUM CHLORIDE 1,000 ML IV SCH
[2018-02-16] MEDS: LORazepam 2 MG/ML VIAL IV PRN ×3 (01:27→04:03)
[2018-02-16] MEDS ORDERED: HALOPERIDOL LACTATE 5 MG/ML VIAL IM PRN ×2 (02:03→04:30)
[2018-02-16] MEDS ORDERED: HALOPERIDOL LACTATE 5 MG/ML VIAL ONE (02:21)
[2018-02-16] MEDS: 0.9 % SODIUM CHLORIDE 10 ML SYRINGE IV SCH (03:03)
[2018-02-16] MEDS: INSULIN LISPRO 1 UNIT/0.01 ML UNIT SQ SCH (03:04)
[2018-02-16] MEDS: fentaNYL 100 MCG/2 ML VIAL IV PRN (04:04)
[2018-02-16] MEDS ORDERED: ONDANSETRON 4 MG/2 ML VIAL IV PRN (04:30)
[2018-02-16] MEDS ORDERED: PROMETHAZINE 25 MG TABLET PO PRN (04:30)
[2018-02-16] MEDS ORDERED: BISACODYL 5 MG TABLET PO PRN (04:30)
[2018-02-16] MEDS ORDERED: PROCHLORPERAZINE 25 MG SUPP.RECT PR PRN (04:30)
[2018-02-16] MEDS ORDERED: HYDROcodone/APAP 5/325MG TABLET PO PRN (04:30)
[2018-02-16] MEDS ORDERED: 0.9 % SODIUM CHLORIDE 1,000 ML IV SCH (04:30)
[2018-02-16] MEDS ORDERED: HYDROmorphone PCA 30 MG/30 ML PCA.VIAL IV PRN (04:30)
[2018-02-16] MEDS ORDERED: fentaNYL 100 MCG/2 ML VIAL IV PRN (04:30)
[2018-02-16] MEDS ORDERED: MEROPENEM 1 GM in 0.9 % SODIUM CHLORIDE 100 ML IV ONE (04:30)
[2018-02-16] MEDS ORDERED: LABETALOL HCL 20 MG/4 ML SYRINGE IV PRN (04:30)
[2018-02-16] MEDS ORDERED: DEXTROSE 31 GM ORAL.SUSP PO PRN (04:30)
[2018-02-16] MEDS ORDERED: MEROPENEM 0.5 GM VIAL IV SCH ×2 (04:30)
[2018-02-16] MEDS ORDERED: ACETAMINOPHEN 325 MG TABLET PO PRN (04:30)
[2018-02-16] MEDS ORDERED: LORazepam 2 MG/ML VIAL IV PRN (04:30)
[2018-02-16] MEDS ORDERED: cloNIDine HCL 0.1 MG TABLET PO PRN (04:30)
[2018-02-16] MEDS ORDERED: LACTULOSE 20 GM/30 ML ORAL.SOL PO PRN (04:30)
[2018-02-16] MEDS ORDERED: DEXTROSE 50% 50 ML VIAL IV PRN (04:30)
[2018-02-16 05:00] LABS: Basophils # (Auto) 0 K/mcL (0.0-0.3); Basophils % (Auto) 0 % (0.0-2.0); Eosinophils # (Auto) 0 K/mcL (0.0-0.7); Eosinophils % (Auto) 0 % (0.0-7.0); Granulocytes % (Auto) 89.7 % (38.0-78.0); Lymphocytes # (Auto) 0.9 K/mcL (1.5-4.8); Lymphocytes % (Auto) 5.4 % (15.5-49.0); Mean Cell Volume 106.4 fL (80.0-100.0); Mean Corpuscular HGB Conc 34.9 g/dL (31.0-36.0); Mean Corpuscular Hemoglobin 37.1 pg (26.0-34.0); Monocytes # (Auto) 0.8 K/mcL (0.1-0.9); Monocytes % (Auto) 4.9 % (1.0-12.0); Platelet Count 159 K/mcL (140-440); RBC 3.55 M/mcL (4.50-5.90); Red Cell Distribution Width 15.1 % (11.5-14.5)
[2018-02-16 05:22] LABS: ALT/SGPT 21 U/l (0-40); Albumin 2.8 gm/dL (3.2-5.2); Albumin/Globulin Ratio 1.1 (1.0-2.3); Alkaline Phosphatase 55 U/L (39-117); Bilirubin,Direct < 0.2 mg/dL (0.0-0.3); Blood Urea Nitrogen 18 mg/dl (6-20); Gamma Glutamyl Transpeptidase 107 U/L (8-61); Uric Acid 4.6 mg/dL (2.5-8.0)
--- NOTE | 2018-02-16 05:27 | Internal Med Progress Note ---
Medical - PN: Subj Patient information: Note initiated : 02/16/18 at 5:22 am Service Date, if different from initiated Date: [] Patient: Yinka Medina a 47 y/o M admitted on 02/14/18 for upper abdominal pain. Chief Complaint: [] Interval history: Mr. Medina is a 47 year old M With history of pancreatitis and alcohol abuse. Drinks at least a sixpack per day as well as liquor. But had a hard time obtaining exact amount. He did drink more than usual last night and woke up this morning at 6 AM with severe sharp shooting abdominal pain radiated to the back 10 out of 10 pain. Last time he was in the hospital for pink otitis was 2 years ago. He did have an episode of nausea vomiting this morning had an episode of diarrhea this morning. Has chills. Does have a chronic cough. He does have some shortness of breath because of shallow breathing from severe abdominal pain. Does have sweats as well. In the ER he was found to have acute pancreatitis imaging shows severe inflammatory changes. No pseudocyst or necrosis noted or abscess. Patient is requiring a high dose of narcotics.. Ultrasound of the gallbladder was unremarkable. Patient was tachycardic when he came in and elevated blood pressure, Other vital signs stable, Good oxygenation. Normal saline bolus 2L's in the ED. 02/15 Did get some sleep last night. Abdominal pain still present but improving. No nausea vomiting diarrhea. 02/16 Urine output poor during the day yesterday but picked up overnight. However, patient started having more significant alcohol withdrawal last night with agitation with restlessness and apparently visual hallucinations not answering orientation questions. Did require more medications for elevated CIWA score, intra-abdominal pressures started monitoring last night first 1 was okay the second 1 was elevated around 20, questionably accurate. Stat CT abdomen pelvis and chest was done early this morning which was concerning for some early findings of necrotic changes, likely splenic vein thrombosis, no focal fluid collection or pseudocyst, a chest with some patchy opacity in left upper lobe. Obtained repeat abdominal compartment pressure, was reported to be 12 at 0500; but just found out it was actually 20. Patient ICU status, started on Merrem. Oxygen requirement is OxiMax 4 L satting 94%. Did discuss with Dr. Garces. 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 Unable to obtain review of systems given altered mental state - Constitutional Vitals: Vital Signs Temp Pulse Resp BP Pulse Ox 99.4 F H 125 H 35 H 159/90 93 02/16/18 02:00 02/16/18 04:01 02/16/18 04:10 02/16/18 04:01 02/16/18 04:01 Period Temp Pulse Resp BP Sys/Armenta Pulse Ox Last 24 Hr 98.6 F-100.5 F 124-133 16-38 114-159/80-101 90-97 Intake and Output 02/15/18 02/15/18 02/16/18 13:59 21:59 05:59 Intake Total 1143 / 1143 2108 / 2108 Output Total 85 / 85 275 / 275 525 / 525 Balance 1058 / 1058 1833 / 1833 -525 / -525 Weight 114.759 kg 119.522 kg Patient Weight 02/16/18 05:59 Weight 119.522 kg Intake & Output: Intake & Output 02/15/18 02/15/18 02/16/18 13:59 21:59 05:59 Intake Total 1143 / 1143 2108 / 2108 Output Total 275 / 275 525 / 525 Balance 1058 / 1058 1833 / 1833 -525 / -525 Weight 114.759 kg 119.522 kg Intake: IV 1143 / 1143 1908 / 1908 Sodium Chloride 0.9% 1,000 ml @ 1092 / 1092 1000 / 1000 150 mls/hr IV .Q6H40M [facility] Rx#: [id number] Vitamin B1 100 mg In Sodium 51 / 51 Chloride 0.9% 50 ml @ 50 mls/hr IV DAILY [facility] Rx#:[id number] Oral 200 / 200 Output: Urine Catheter Amount 275 / 275 525 / 525 Void Amount / Other: Urine Appearance Clear Clear Uretheral ([place]) Clear Urine Color Dark [place] Luisa Blood Tinged Dark Ana Luisa Blood Tinged Uretheral ([place]) Dark Aan Luisa Urine Odor Strong Strong Exam: General: Agitated, drowsy, distress Eyes/N/T: EOMI, Head/Neck: neck supple CV: RRR, No murmurs, normal s1/s2 Pulm: no wheezing/rhonchi Abd: distended, decreased BS Ext: no clubbing/cyanosis/edema Neuro: drowsy, not following commands, spontaneously moves all extremities Skin: warm/dry Medical - PN: Obj Da - Labs CBC & Chem 7: 02/16/18 03:35 02/16/18 03:35 Labs: Abnormal Lab Results 02/16/18 02/15/18 02/15/18 03:35 17:51 09:08 WBC 16.1 H RBC 3.55 L Hgb 13.2 L Hct 37.7 L MCV 106.4 H MCH 37.1 H RDW 15.1 H Gran % 89.7 H Lymph % (Auto) 5.4 L Gran # 14.4 H Lymph # (Auto) 0.9 L Carbon Dioxide Anion Gap Glucose Calcium Magnesium GGT AST ALT Amylase Lipase 1646 H Vitamin B12 Ur Specific [place] Urine Protein 100 A Urine Bilirubin 2.0 A Amorphous Crystals Few A Hyaline Casts 101 H Urine Mucus Many A 02/15/18 02/15/18 02/15/18 07:31 03:36 03:36 WBC RBC Hgb Hct MCV MCH RDW Gran % Lymph % (Auto) Gran # Lymph # (Auto) Carbon Dioxide 16 L Anion Gap 18.0 H Glucose 123 H Calcium 7.5 L Magnesium GGT 172 H AST ALT Amylase Lipase 1573 H Vitamin B12 159.0 L Ur Specific [place] Urine Protein Urine Bilirubin Amorphous Crystals Hyaline Casts Urine Mucus 02/15/18 02/15/18 02/14/18 03:36 01:30 20:05 WBC 22.3 H RBC 4.41 L Hgb Hct MCV 107.3 H MCH 36.2 H RDW 14.6 H Gran % 94.0 H Lymph % (Auto) 2.7 L Gran # 20.9 H Lymph # (Auto) 0.6 L Carbon Dioxide 17 L Anion Gap 17.0 H Glucose 142 H Calcium 7.8 L Magnesium 1.2 L GGT 192 H AST 43 H ALT Amylase Lipase Vitamin B12 Ur Specific [place] 1.044 H Urine Protein Urine Bilirubin Amorphous Crystals Hyaline Casts 4 H Urine Mucus 02/14/18 02/14/18 13:41 13:41 WBC 15.4 H RBC 4.15 L Hgb Hct MCV 105.7 H MCH 36.1 H RDW Gran % 88.8 H Lymph % (Auto) 7.7 L Gran # 13.7 H Lymph # (Auto) 1.2 L Carbon Dioxide 19 L Anion Gap 18.0 H Glucose 168 H Calcium Magnesium GGT AST 47 H ALT 42 H Amylase 187 H Lipase 1275 H Vitamin B12 Ur Specific [place] Urine Protein Urine Bilirubin Amorphous Crystals Hyaline Casts Urine Mucus Meds: Medications Acetaminophen (Tylenol) 650 mg PO Q6HP PRN PRN Reason: PAIN/FEVER > 101 Hydrocodone Bitart/Acetaminophen ([place] 5/325mg) 1 tab PO Q4HP PRN PRN Reason: PAIN LEVEL 3-6 Bisacodyl (Dulcolax) 10 mg PO DAILYP PRN PRN Reason: Constipation Clonidine HCl (Catapres) 0.1 mg PO Q4HP PRN PRN Reason: Alcohol Withdrawal Cyanocobalamin (Vitamin B12) 1,000 mcg IM DAILY [facility] Stop: 02/18/18 09:01 Dextrose (Dextrose 50%) 0 ml IV UD PRN PRN Reason: Hypoglycemia Diagnostic Test (Pha) (Accu-Chek) 1 each FS Q6 [facility] Docusate Sodium (Colace) 100 mg PO BID [facility] Enoxaparin Sodium (Lovenox) 40 mg SQ DAILY [facility] Famotidine (Pepcid) 20 mg IV Q12 [facility] Fentanyl (Sublimaze) 25 mcg IV Q1HP PRN PRN Reason: PAIN LEVEL > 6 Folic Acid (Folic Acid) 1 mg PO DAILY [facility] Glucose (Insta-Glucose) 15 gm PO PRN PRN PRN Reason: Hypoglycemia Haloperidol Lactate (Haldol) 0.5 mg IM Q2HP PRN PRN Reason: Alcohol Withdrawal Hydromorphone HCl (Dilaudid Cadmium Liquor Maker) 30 mg IV UD PRN; Protocol PRN Reason: Pain Sodium Chloride (Sodium Chloride 0.9%) 1,000 mls @ 150 mls/hr IV .Q6H40M [facility] Thiamine HCl 100 mg/ Sodium (Chloride) 51 mls @ 50 mls/hr IV DAILY [facility] Insulin Human Lispro (Humalog) 0 unit SQ Q6 [facility]; Protocol Labetalol HCl (Labetalol Hcl) 0 mg IV Q2HP PRN PRN Reason: Hypertension Lactulose (Cephulac) 10 gm PO DAILYP PRN PRN Reason: Constipation Lorazepam (Ativan) 0 mg IV Q4HP PRN; Protocol PRN Reason: Alcohol Withdrawal Meropenem (Merrem) 1 gm IV Q8 [facility] Nicotine (Nicoderm) 21 mg TOPICAL DAILY@1000 [facility] Ondansetron HCl (Zofran) 4 mg IV Q4HP PRN PRN Reason: Nausea And Vomiting Prochlorperazine Maleate (Compazine) 12.5 mg [place] Q12HP PRN PRN Reason: Nausea And Vomiting Promethazine HCl (Phenergan) 12.5 mg PO Q6HP PRN PRN Reason: Nausea And Vomiting Sodium Chloride (Saline Flush) 10 ml IV Q8 [facility] Medical - PN: A/P - Time Spent With Patient Total time spent is greater than 50% in coordination of care (as documented) at patient's floor/unit and/or counseling patient: - Narrative A/P Narrative: A: *Acute severe pancreatitis, now concerning for possibly early necrosis and abdominal compartment syndrome: 2/2 alcohol abuse -Gallbladder ultrasound unremarkable -8L's over 36hrs with poor clinical response other than improved UOP last night. some labs finally improving (WBC/lipase) -repeat CT chest abdomen pelvis with multifocal areas concerning for early necrotic changes, splenic vein thrombosis likely, diffuse ascites. 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 Watkins ([place] Account Support Specialist) who graciously accepted; pt to be life-flighted soon -did talk to and made aware of critical state and pt will likely get worse before he starts to improve -b12 supp -smoking cessation counseling -ppx: [facility] - PN: Qual - VTE Deep Vein Thrombosis/Pulmonary Embolism Present on Admission: No
[2018-02-16] MEDS ORDERED: LORazepam 2 MG/ML VIAL ONE (05:43)
[2018-02-16] MEDS ORDERED: INSULIN LISPRO 1 UNIT/0.01 ML UNIT SQ SCH (06:00)
[2018-02-16] MEDS ORDERED: 0.9 % SODIUM CHLORIDE 10 ML SYRINGE IV SCH (06:00)
[2018-02-16 06:24] LABS: Band Neutrophils % 31 % (0-10); Lymphocytes % 5 % (15-49); Macrocytosis 2+ (NONE SEEN); Monocytes % (Manual) 3 % (1-12); Platelet Estimate NORMAL (NORMAL); RBC Morphology ABNORM (NORMAL); Segmented Neutrophils % 61 % (38-78); Toxic Granulation FEW (NONE SEEN)
--- NOTE | 2018-02-16 06:59 | XRay Report ---
CLINICAL INFORMATION: ng tube placement COMPARISON: 02/14/2018 FINDINGS: NG tip overlies the gastric body. Stool gas pattern is unremarkable. No free air, pathologic calcification, soft tissue mass or organomegaly. IMPRESSION: NG tube overlying the gastric body Interpreted and Authenticated by: Omari Green 02/16/18
--- NOTE | 2018-02-16 07:16 | Cat Scan Report ---
CLINICAL INFORMATION: Abdominal pain and distention COMPARISON: Abdomen and pelvic CT from 05/18/2016 and 02/14/2018 TECHNIQUE: Enteric contrast was utilized. 80 cc of Isovue-300 were injected intravenously, and 50 seconds later 2.5 mm helical slices were obtained from the lung apices through the subtrochanteric regions of the femurs. Following reconstruction, 2.5 mm sagittal, coronal and axial reformatted images were processed and reviewed at multiple windows and levels. 7 mm MIP reconstructions were obtained through the lungs to optimize nodule detection.The exam was performed using radiation dose optimization techniques including, but not limited to, automated exposure control, adjustment of the mA and/or kV according to patient size and use of iterative reconstruction technique. FINDINGS: Pulmonary parenchymal windows show development of small bilateral pleural effusions since the CT less than two days prior. There is also complete atelectasis of the posterior, medial and lateral basilar segments of the left lower lobe. There is subtotal atelectasis of the medial posterior basilar segment right lower lobe. A small alveolar infiltrate is present in the left lung apex. Mediastinal windows show the thoracic aorta and pulmonary arteries are well opacified and normal in contour and caliber. The heart is normal in size and small amount of calcific plaque in the coronary arteries. Esophagus is grossly normal. There is no adenopathy in the mediastinal hilar or axillary regions. The thyroid is unremarkable. Images through the abdomen show interval development of moderate ascites in the perihepatic, perisplenic and the true pelvic regions. There is also fluid in the left anterior perinephric space and in the peripancreatic fat planes. This has increased considerably from the previous study. The pancreas shows mild diffuse enlargement with inhomogeneous decreased attenuation compatible simple pancreatitis. There are scattered extremely vague low-attenuation region within the pancreatic head and neck which could indicate early necrosis. A small amount of thrombus has developed in the distal splenic vein. Intravenous contrast from the most recent CT has opacified the gallbladder which is normal. Intrahepatic and common bile ducts are normal - CBD is 5 mm. The liver, spleen, both kidneys, adrenal glands and aorta are normal in size, configuration and attenuation without focal lesion. There appears to be vague focal plaque in the distal right common iliac artery possibly resulting in hemodynamically significant stenosis. There is also a high-grade (greater than 70% (stenosis of the left internal iliac artery. The remainder aortic branches are unremarkable. The stomach, small/large bowel and appendix are normal. Is no free air and no adenopathy. Bone windows show probable acute nondisplaced fractures of the lateral left 678 ribs in the lateral left sixth through ninth ribs. Motion artifact in these regions reduce confidence in diagnosis. No other osseous or maladies throughout the chest abdomen or pelvis. IMPRESSION: Diffuse pancreatitis - modest worsening since CT just two days ago. Pancreas shows diffuse enlargement with inhomogeneous attenuation. Scattered vague low-attenuation lesions in the head and neck could indicate early necrosis, but this is not definite. A small amount of focal thrombus has developed in the distal splenic vein. Moderate ascites has progressed from the CT just two days prior. Small bilateral pleural effusions with atelectasis in the medial, posterior lateral basilar segments of the left lower lobe and subtotal atelectasis in the medial and posterior basilar segment right lower lobe. New from the CT two days ago Small alveolar infiltrate - left lung apex Probable acute nondisplaced bilateral lower rib fractures. Motion artifact results in suboptimal visualization of these regions. If it is clinically important to diagnose rib fractures with certainty, suggest standard bilateral rib films Greater than 70% stenosis - left internal iliac artery origin likely reducing perfusion pressure to pelvic organs. If impotence is a clinical issue, suggest referral to an interventional radiologist for angiography and stenting. Premature atherosclerotic disease or the patient's relatively young age of 47. Please consider aggressive identification and treatment of risk factors Interpreted and Authenticated by: Omari Green 02/16/18
--- NOTE | 2018-02-16 07:29 | Transfer Summary ---
Transfer Discharge Sum: Prov Patient information: Note initiated : 02/16/18 at 7:24 am Service Date, if different from initiated Date: [] Patient: Yinka Medina 47 y/o M admitted on 02/14/18 for upper abdominal pain. Chief Complaint: [] Date of admission: 02/14/18 20:00 Discharge Date: 02/16/18 Primary care physician: Chico Jett Consults: 02/14/18 Consult to Physician [CONS] Stat Comment: Consulting Provider: Kali Triana Reason For Exam: Physician to Consult Transfer Discharge Sum: Med - Medications Active and Home Medications: Home Medications losartan 100 mg tablet 100 mg PO QDAY #30 tab 12/24/17 [Rx Confirmed 02/14/18] Active Medications Acetaminophen (Tylenol) 650 mg PO Q6HP PRN PRN Reason: PAIN/FEVER > 101 Hydrocodone Bitart/Acetaminophen ([place] 5/325mg) 1 tab PO Q4HP PRN PRN Reason: PAIN LEVEL 3-6 Bisacodyl (Dulcolax) 10 mg PO DAILYP PRN PRN Reason: Constipation Clonidine HCl (Catapres) 0.1 mg PO Q4HP PRN PRN Reason: Alcohol Withdrawal Cyanocobalamin (Vitamin B12) 1,000 mcg IM DAILY [facility] Stop: 02/18/18 09:01 Dextrose (Dextrose 50%) 0 ml IV UD PRN PRN Reason: Hypoglycemia Diagnostic Test (Pha) (Accu-Chek) 1 each FS Q6 [facility] Last Admin: 02/16/18 06:56 Dose: 1 each Docusate Sodium (Colace) 100 mg PO BID [facility] Enoxaparin Sodium (Lovenox) 40 mg SQ DAILY [facility] Famotidine (Pepcid) 20 mg IV Q12 [facility] Fentanyl (Sublimaze) 25 mcg IV Q1HP PRN PRN Reason: PAIN LEVEL > 6 Folic Acid (Folic Acid) 1 mg PO DAILY [facility] Glucose (Insta-Glucose) 15 gm PO PRN PRN PRN Reason: Hypoglycemia Haloperidol Lactate (Haldol) 0.5 mg IM Q2HP PRN PRN Reason: Alcohol Withdrawal Hydromorphone HCl (Dilaudid Language Arts Teacher) 30 mg IV UD PRN; Protocol PRN Reason: Pain Sodium Chloride (Sodium Chloride 0.9%) 1,000 mls @ 150 mls/hr IV .Q6H40M [facility] Thiamine HCl 100 mg/ Sodium (Chloride) 51 mls @ 50 mls/hr IV DAILY [facility] Meropenem 1 gm/ Sodium (Chloride) 100 mls @ 100 mls/hr IV Q8H [facility] Insulin Human Lispro (Humalog) 0 unit SQ Q6 [facility]; Protocol Last Admin: 02/16/18 06:57 Dose: Not Given Labetalol HCl (Labetalol Hcl) 0 mg IV Q2HP PRN PRN Reason: Hypertension Lactulose (Cephulac) 10 gm PO DAILYP PRN PRN Reason: Constipation Lorazepam (Ativan) 0 mg IV Q4HP PRN; Protocol PRN Reason: Alcohol Withdrawal Meropenem (Merrem) 1 gm IV Q8 [facility] Nicotine (Nicoderm) 21 mg TOPICAL DAILY@1000 [facility] Ondansetron HCl (Zofran) 4 mg IV Q4HP PRN PRN Reason: Nausea And Vomiting Prochlorperazine Maleate (Compazine) 12.5 mg LA Q12HP PRN PRN Reason: Nausea And Vomiting Promethazine HCl (Phenergan) 12.5 mg PO Q6HP PRN PRN Reason: Nausea And Vomiting Sodium Chloride (Saline Flush) 10 ml IV Q8 [facility] Last Admin: 02/16/18 06:58 Dose: 10 ml Transfer Discharge Sum: Hosp Hospital course: Mr. Medina is a 47 year old M With history of pancreatitis and alcohol abuse. Drinks at least a sixpack per day as well as liquor. But had a hard time obtaining exact amount. He did drink more than usual last night and woke up this morning at 6 AM with severe sharp shooting abdominal pain radiated to the back 10 out of 10 pain. Last time he was in the hospital for pink otitis was 2 years ago. He did have an episode of nausea vomiting this morning had an episode of diarrhea this morning. Has chills. Does have a chronic cough. He does have some shortness of breath because of shallow breathing from severe abdominal pain. Does have sweats as well. In the ER he was found to have acute pancreatitis imaging shows severe inflammatory changes. No pseudocyst or necrosis noted or abscess. Patient is requiring a high dose of narcotics.. Ultrasound of the gallbladder was unremarkable. Patient was tachycardic when he came in and elevated blood pressure, Other vital signs stable, Good oxygenation. Normal saline bolus 2L's in the ED. 02/15 Did get some sleep last night. Abdominal pain still present but improving. No nausea vomiting diarrhea. 02/16 Urine output poor during the day yesterday but picked up overnight. However, patient started having more significant alcohol withdrawal last night with agitation with restlessness and apparently visual hallucinations per nurse and not answering orientation questions. 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 Stat CT abdomen pelvis and chest was done early this morning which was concerning for some early findings of necrotic changes, likely splenic vein thrombosis, no focal fluid collection or pseudocyst, diffuse ascites, a chest with some patchy opacity in left upper lobe and compressive atelectasis. Obtained repeat abdominal compartment pressure at 0500 was reported as 12; but just found out it was actually 20. Patient ICU status, started on Merrem. Oxygen requirement is Oxymask 4 L satting 94%. Did discuss with Dr. Garces. Now contacting [facility] and will transfer soon. A: *Acute severe pancreatitis, now concerning for possibly early necrosis and abdominal compartment syndrome: 2/2 alcohol abuse -Gallbladder ultrasound unremarkable -8L's over 36hrs with poor clinical response other than improved UOP last night. some labs finally improving (WBC/lipase) -repeat CT chest abdomen pelvis with multifocal areas concerning for early necrotic changes, splenic vein thrombosis likely, diffuse ascites. 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 Watkins ([facility]) who graciously accepted; pt to be life-flighted soon -did talk to and made aware of critical state and pt will likely get worse before he starts to improve -b12 supp -smoking cessation counseling -ppx: lovenox - Time Spent with Patient Total time spent providing and/or coordinating transfer services: Greater than 30 minutes Transfer Discharge Sum: Exam - Constitutional Vitals: Vital Signs Temp Pulse Pulse Resp BP BP Pulse Ox 02/16/18 04:10 35 H 02/16/18 04:01 125 H 33 H 159/90 93 02/16/18 03:20 124 H 135/97 94 02/16/18 02:39 126 H 38 H 94 02/16/18 02:00 99.4 F H 21 134/99 02/16/18 01:00 127 H 33 H 131/82 92 02/16/18 00:00 100.5 F H 130 H 34 H 129/88 91 02/15/18 23:01 131 H 33 H 125/91 91 02/15/18 22:01 133 H 32 H 140/80 92 02/15/18 21:02 142/101 02/15/18 21:00 130 H 93 02/15/18 20:01 99.8 F H 32 H 129/99 94 02/15/18 19:41 94 02/15/18 19:01 24 H 142/98 94 02/15/18 19:00 24 H 02/15/18 18:01 19 128/96 95 02/15/18 17:01 18 114/91 94 02/15/18 16:01 99.0 F 16 117/88 90 02/15/18 15:47 19 119/91 94 02/15/18 15:25 99.9 F H 97 02/15/18 15:01 122/86 94 02/15/18 14:01 128/91 94 02/15/18 13:01 118/92 94 02/15/18 12:43 120/89 94 02/15/18 12:09 127 H 118/86 91 02/15/18 12:00 99.5 F H 28 H 120/89 95 02/15/18 08:00 98.6 F 126 H 19 95 Intake and Output 02/15/18 02/16/18 02/16/18 21:59 05:59 13:59 Intake Total 2108 / 2108 Output Total 275 / 275 525 / 525 150 / 150 Balance 1833 / 1833 -525 / -525 -150 / -150 Intake: IV 1908 / 1908 Sodium Chloride 0.9% 1,000 ml @ 1000 / 1000 150 mls/hr IV .Q6H40M [facility] Rx#: [id number] Oral 200 / 200 Output: Gastric Drainage 150 / 150 Right Nare 150 / 150 Urine Catheter Amount 275 / 275 525 / 525 Other: Urine Appearance Clear Uretheral (Sandoval) Clear Urine Color Blood Tinged Dark Ana Luisa Uretheral (Sandoval) Dark Ana Luisa Urine Odor Strong Weight 119.522 kg Transfer Discharge Sum: Data Procedures and tests throughout hospitalization: Pending Orders 02/14/18 Consult to Physician [CONS] Stat 02/14/18 17:51 Resuscitation Status Routine 02/14/18 18:02 CIWA Protocol .ROUTINE Notify Provider PRN Pulse Oximetry CONT 02/14/18 20:05 Admit as Inpatient Routine Ambulate-Progressive DAILY coper hand CONT Condition Routine IV Insertion/Management QSHIFT Intake and Output Q4H Notify Provider .routine Up to chair PRN Weight Monitoring QHS RD to Adjust Diet/Supplements as Needed Routine Incentive Spirometry Assess/Tx Q2HWA Pulse Oximetry .ROUTINE 02/15/18 09:05 Sandoval [Indwelling Urinary Catheter] CONT 02/15/18 17:42 Communication order ONCE 02/15/18 17:46 Communication order NOW 02/15/18 17:53 Communication order NOW 02/15/18 18:00 Communication order ONCE 02/15/18 18:52 NPO Diet (NOW) 02/15/18 20:34 Communication order NOW 02/16/18 04:30 0.9 % Sodium Chloride [Sodium Chloride 0.9%] 1,000 ml IV 150 mls/hr Acetaminophen [Tylenol] 650 mg PO Q6HP PRN Bisacodyl [Dulcolax] 10 mg PO DAILYP PRN Dextrose 50% See Dose Instructions IV UD PRN Dextrose [Insta-Glucose] 15 gm PO PRN PRN HYDROcodone/APAP 5/325MG [[place] 5/325Mg] 1 tab PO Q4HP PRN HYDROmorphone 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 [Dilaudid 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] 30 mg IV UD PRN Haloperidol Lactate [Haldol] 0.5 mg IM Q2HP PRN LORazepam [Ativan] See Protocol IV Q4HP PRN Labetalol HCl See Dose Instructions IV Q2HP PRN Lactulose [Cephulac] 10 gm PO DAILYP PRN Meropenem [Merrem] 1 gm IV Q8 Ondansetron [Zofran] 4 mg IV Q4HP PRN Prochlorperazine [Compazine] 12.5 mg LA Q12HP PRN Promethazine [Phenergan] 12.5 mg PO Q6HP PRN cloNIDine HCL [Catapres] 0.1 mg PO Q4HP PRN fentaNYL [Sublimaze] 25 mcg IV Q1HP PRN 02/16/18 06:00 0.9 % Sodium Chloride [Saline Flush] 10 ml IV Q8 Accu-Chek 1 each FS Q6 Insulin Lispro [HumaLOG] See Dose Instructions SQ Q6 02/16/18 06:23 PICC Line NOW 02/16/18 08:00 Meropenem [Merrem] 1 gm 0.9 % Sodium Chloride [Sodium Chloride 0.9%] 100 ml IV Q8H 02/16/18 09:00 Cyanocobalamin [Vitamin B12] 1,000 mcg IM DAILY Docusate Sodium [Colace] 100 mg PO BID Enoxaparin [Lovenox] 40 mg SQ DAILY Famotidine/Pf [Pepcid] 20 mg IV Q12 Folic Acid 1 mg PO DAILY Thiamine [Vitamin B1] 100 mg 0.9 % Sodium Chloride [Sodium Chloride 0.9%] 50 ml IV DAILY 02/16/18 10:00 Nicotine [Nicoderm] 21 mg TOPICAL DAILY@1000 Transfer Discharge Sum: A/P - Plan Overall status at transfer: patient is not back to baseline Disposition: Xfer [facility] Quality Measure Queries - VTE Deep Vein Thrombosis/Pulmonary Embolism Present on Admission: No
[2018-02-16] MEDS ORDERED: MEROPENEM 1 GM in 0.9 % SODIUM CHLORIDE 100 ML IV SCH ×2 (08:00→14:00)
[2018-02-16] MEDS ORDERED: CYANOCOBALAMIN 1,000 MCG/ML VIAL IM SCH ×2 (09:00)
[2018-02-16] MEDS ORDERED: THIAMINE 100 MG in 0.9 % SODIUM CHLORIDE 50 ML IV SCH (09:00)
[2018-02-16] MEDS ORDERED: ENOXAPARIN 40 MG/0.4 ML SYRINGE SQ SCH (09:00)
[2018-02-16] MEDS ORDERED: FAMOTIDINE/PF 20 MG/2 ML VIAL IV SCH (09:00)
[2018-02-16] MEDS ORDERED: DOCUSATE SODIUM 100 MG CAPSULE PO SCH (09:00)
[2018-02-16] MEDS ORDERED: FOLIC ACID 1 MG TABLET PO SCH (09:00)
[2018-02-16] MEDS ORDERED: NICOTINE 21 MG PATCH TOPICAL SCH (10:00)
== END 2018-02-16 08:30 | disposition short-term general hospital (02) | DRG 438 ==
LOC: ED 13:28 → ICU 20:00
PROVIDERS: ADMIT Internal Medicine; ATTEND Internal Medicine
CPT/HCPCS: 84145